=== PATIENT | female | born 1985 | race Caucasian/White ===

== ENCOUNTER 2019-10-14 03:49 | Emergency (ER) | payer BC ==
[~2019-10-14] VITALS: Ht 170.2 cm; Wt 77.1 kg
[2019-10-14] MEDS ORDERED: ZOLOFT25 MG ORAL (04:03)
--- NOTE | 2019-10-14 04:06 | NUR ---
ED Nurse Note: pt ambulated to ED from home c/o N/V and chills x12hrs, pt unable to keep down water, VSS except BP 160's, pt currently vomitting, ERMD at bedside
[2019-10-14] MEDS ORDERED: DiphenhydrAMINE 50mg/ml Inj IVP ONE (04:15)
[2019-10-14] MEDS ORDERED: LORazepam Inj 2mg/ml 1ml IV ONE (04:15)
[2019-10-14] MEDS ORDERED: Metoclopramide 10mg/2ml Inj IVP ONE (04:15)
--- NOTE | 2019-10-14 04:15 | Emergency Room Report ---
History of Present Illness General Chief Complaint: Vomiting Source: Patient, Friend Present Illness HPI Patient presents with vomiting and vertigo. This been going on for about 12 hours. She cannot open her eyes because the world is spinning. She recently started Zoloft. She denies any fevers or chills. She denies headache. There is no muscle weakness. She denies any abdominal pain. Her last menstruation started the beginning of the month and was normal for her. She does not believe she is at this time. THC 1 week ago. Wine 2 nights ago. No coffee grounds or hematemesis. No diarrhea or melena. No dysuria. She denies prior migraines. She denies tinnitus or change in hearing. Allergies: Coded Allergies: SULFAMETHOXAZOLE (Verified Allergy, Unknown, 10/14/19) TRIMETHOPRIM (Verified Allergy, Unknown, 10/14/19) Patient History Past Medical History: see triage record Social History: Reports: alcohol use, drug use - THC ; Denies: smoking Social History Narrative Unemployed Last Menstrual Period: 10/08/19 Now: No : 1 Para: 1 Reviewed Nursing Documentation: PMH: Agreed; PSxH: Agreed Nursing Documentation-PMH History Of Psychiatric Problem: Yes - depression Review of Systems All Other Systems: negative except mentioned in HPI Physical Exam Vital Signs Date Time Temp Pulse Resp B/P (MAP) Pulse Ox O2 Delivery O2 Flow Rate FiO2 10/14/19 03:52 65 18 161/99 (119) 98 Room Air Sp02 EP Interpretation: reviewed, normal General Appearance: no apparent distress, GCS 15, non-toxic, mild distress, other - vomiting Head: normocephalic Eyes: bilateral eye normal inspection, bilateral eye abnormal EOM - nystagmus, fast phase to left ENT: moist mucus membranes Neck: supple Respiratory: lungs clear, normal breath sounds Cardiovascular #1: regular rate, rhythm Cardiovascular #2: 2+ radial (R) Gastrointestinal: normal inspection, non tender, no mass, non-distended, decreased bowel sounds Musculoskeletal: back normal, normal range of motion, gait/station normal Neurologic: alert, motor strength/tone normal, oriented x3, sensory intact, speech normal Psychiatric: anxious Skin: other - sallo Medical Decision Making Diagnostic Impression: Primary Impression: Labyrinthitis Qualified Codes: H83.09 - Labyrinthitis, unspecified ear Additional Impressions: Vertigo Vomiting Qualified Codes: R11.2 - Nausea with vomiting, unspecified ER Course Patient presents with a world spinning and vomiting. Differential includes vertigo, labyrinthitis, adverse reaction to Zoloft, electrolyte imbalance amongst others. Due to the severity of symptoms doubt central cause. Evaluation with labs. Patient is placed on a bus monitor. Patient will receive IV hydration, Reglan, Benadryl and Ativan. Labs with minimal leukocytosis. Glucose 200. Few episodes of bradycardia but not symptomatic. Solu-Medrol given. Patient improved with treatment. Tolerating oral intake. Discussed findings with patient. Discussed the possibility for observation in the hospital if not doing well. No medical emergency at this time. Patient stable for outpatient observation and treatment. Laboratory Tests Test 10/14/19 04:15 White Blood Count 13.6 K/UL (4.8-10.8) H Red Blood Count 4.74 M/UL (4.20-5.40) Hemoglobin 13.9 G/DL (12.0-16.0) Hematocrit 40.6 % (37.0-47.0) Mean Corpuscular Volume 86 FL (80-99) Mean Corpuscular Hemoglobin 29.4 PG (27.0-31.0) Mean Corpuscular Hemoglobin Concent 34.3 G/DL (32.0-36.0) Red Cell Distribution Width 12.4 % (11.6-14.8) Platelet Count 229 K/UL (150-450) Mean Platelet Volume 7.3 FL (6.5-10.1) Neutrophils (%) (Auto) 73.0 % (45.0-75.0) Lymphocytes (%) (Auto) 20.6 % (20.0-45.0) Monocytes (%) (Auto) 5.1 % (1.0-10.0) Eosinophils (%) (Auto) 0.8 % (0.0-3.0) Basophils (%) (Auto) 0.6 % (0.0-2.0) Prothrombin Time 10.0 SEC (9.30-11.50) Prothrombin Time INR 0.9 (0.9-1.1) Activated Partial Thromboplast Time 24 SEC (23-33) Urine Color Pending Urine Appearance Pending Urine pH Pending Urine Specific [place] Pending Urine Protein Pending Urine Glucose (UA) Pending Urine Ketones Pending Urine Blood Pending Urine Nitrite Pending Urine Bilirubin Pending Urine Urobilinogen Pending Urine Leukocyte Esterase Pending Sodium Level 138 MMOL/L (136-145) Potassium Level 4.1 MMOL/L (3.5-5.1) Chloride Level 102 MMOL/L (98-107) Carbon Dioxide Level 23 MMOL/L (21-32) Anion Gap 13 mmol/L (5-15) Blood Urea Nitrogen 17 mg/dL (7-18) Creatinine 0.9 MG/DL (0.55-1.30) Estimate Glomerular Filtration Rate > 60 mL/min (>60) Glucose Level 200 MG/DL (74-106) H Calcium Level 9.8 MG/DL (8.5-10.1) Total Bilirubin 0.3 MG/DL (0.2-1.0) Aspartate Amino Transferase (AST) 22 U/L (15-37) Alanine Aminotransferase (ALT) 30 U/L (12-78) Alkaline Phosphatase 70 U/L (46-116) Total Protein 8.4 G/DL (6.4-8.2) H Albumin 3.9 G/DL (3.4-5.0) Globulin 4.5 g/dL Albumin/Globulin Ratio 0.9 (1.0-2.7) L Lipase 130 U/L (73-393) Human Chorionic Gonadotropin, Qual Negative (NEGATIVE) Rhythm Strip Diag. Results EP Interpretation: yes Rhythm: NSR, no PVC's, no ectopy Last Vital Signs Date Time Temp Pulse Resp B/P (MAP) Pulse Ox O2 Delivery O2 Flow Rate FiO2 10/14/19 08:55 98.8 60 20 102/57 99 Room Air Status: improved Disposition: HOME, SELF-CARE Condition: Improved Scripts Lorazepam* (ATIVAN*) 0.5 Mg Tablet 0.5 MG ORAL THREE TIMES A DAY PRN for vertigo, #6 TAB 1 Refill Prov: Dorian Lozano MD 10/14/19 Ondansetron Odt* (ZOFRAN ODT*) 4 Mg Tab.rapdis 4 MG BC EVERY 8 HOURS PRN for Nausea & Vomiting, #10 TAB 1 Refill Prov: Dorian Lozano MD 10/14/19 Meclizine Hcl* (MECLIZINE*) 25 Mg Tablet 25 MG ORAL THREE TIMES A DAY PRN for vertigo, #14 TAB 1 Refill Prov: Dorian Lozano MD 10/14/19 Dorian Lozano MD Oct 14, 2019 04:15
[2019-10-14 04:28] VITALS: BP 161/99
[2019-10-14 04:29] LABS: BASOPHILS % (AUTO) 0.6 % (0.0-2.0); EOSINOPHILS % (AUTO) 0.8 % (0.0-3.0); HEMATOCRIT 40.6 % (37.0-47.0); HEMOGLOBIN 13.9 G/DL (12.0-16.0); LYMPHOCYTES % (AUTO) 20.6 % (20.0-45.0); MEAN CORPUSCULAR VOLUME 86 FL (80-99); MONOCYTES % (AUTO) 5.1 % (1.0-10.0); PLATELET COUNT 229 K/UL (150-450); RED BLOOD COUNT 4.74 M/UL (4.20-5.40); RED CELL DISTRIBUTION WIDTH 12.4 % (11.6-14.8); WHITE BLOOD COUNT 13.6 K/UL (4.8-10.8)
[2019-10-14 04:43] LABS: ANION GAP 13 mmol/L (5-15); BLOOD UREA NITROGEN 17 mg/dL (7-18); CALCIUM 9.8 MG/DL (8.5-10.1); CARBON DIOXIDE 23 MMOL/L (21-32); CHLORIDE 102 MMOL/L (98-107); CREATININE 0.9 MG/DL (0.55-1.30); POTASSIUM 4.1 MMOL/L (3.5-5.1); SODIUM 138 MMOL/L (136-145)
[2019-10-14 04:45] LABS: INR 0.9 (0.9-1.1)
[2019-10-14 04:47] LABS: ALANINE AMINOTRANSFERASE 30 U/L (12-78); ALBUMIN 3.9 G/DL (3.4-5.0); ALBUMIN/GLOBULIN RATIO 0.9 (1.0-2.7); ALKALINE PHOSPHATASE 70 U/L (46-116); ASPARTATE AMINO TRANSFERASE 22 U/L (15-37); BILIRUBIN,TOTAL 0.3 MG/DL (0.2-1.0)
[2019-10-14] MEDS ORDERED: Solu-MEDROL 125mg Inj IVP ONE (05:00)
--- NOTE | 2019-10-14 06:26 | NUR ---
ED Nurse Note: pt resting in bed with eyes closed, non-labored breathing, pt states she is in less pain with less nausea, fluids infusing per order.
[2019-10-14 06:27] VITALS: BP 134/88
[2019-10-14] MEDS ORDERED: ATIVAN0.5 MG ORAL (06:52)
[2019-10-14] MEDS ORDERED: MECLIZINE HCL25 MG ORAL (06:52)
[2019-10-14] MEDS ORDERED: ONDANSETRON ODT4 MG BC (06:52)
--- NOTE | 2019-10-14 07:01 | NUR ---
HAND-OFF: Report given to MARIAA Saldana.
--- NOTE | 2019-10-14 07:20 | NUR ---
ED Nurse Note: Received pt on bed, sleeping. VSS, on RA. noted no signs of acute distress.
[2019-10-14 07:30] VITALS: BP 102/57
[2019-10-14 08:55] VITALS: BP 102/57
--- NOTE | 2019-10-14 08:55 | NUR ---
ER DISCHARGE NOTE: Pt is cleared to be discharged per ERMD, Pt is aox4, on room air, with stable vital signs. pt was given dc and prescription instructions, pt was able to verbalize understanding, pt id band and iv site removed without complications. pt is able to ambulate with steady gait. pt took all belongings. Pt left ED accompanied by .
== END 2019-10-14 08:55 | disposition home or self-care (01) ==
LOC: EMR 04:14
DX: H83.09 Labyrinthitis, unspecified ear (principal); R42 Dizziness and giddiness; R11.2 Nausea with vomiting, unspecified; F12.90 Cannabis use, unspecified, uncomplicated; Z72.89 Other problems related to lifestyle; Z88.2 Allergy status to sulfonamides; Z88.1 Allergy status to other antibiotic agents
CPT/HCPCS: 36415; 80053; 83690; 84703; 85025; 85610; 85730; 96361; 96374; 96375; 99284; J1200; J2765; J2930; J7030; S0028

== ENCOUNTER 2019-10-16 18:18 | Inpatient (IN) | payer BC ==
[~2019-10-16] VITALS: Ht 170.2 cm; Wt 80.5 kg
[~2019-10-16 18:18] MED LIST: ATIVAN0.5 MG ORAL; MECLIZINE HCL25 MG ORAL; ONDANSETRON ODT4 MG BC; ZOLOFT25 MG ORAL
[2019-10-16 18:45] VITALS: BP 122/85
[2019-10-16] MEDS ORDERED: LORazepam Inj 2mg/ml 1ml IV ONE (18:45)
--- NOTE | 2019-10-16 18:45 | NUR ---
ED Nurse Note: PATIENT WALKED IN TO ER C/O PERSISTENT VERTIGO AND SHE STILL FEELS SPINNING SENSATION. PT WAS SEEN THURSDAY BY DR CHOU, 10/14 AND WAS PRESCRIBED WITH MECLIZINE 25MG. PATIENT PRESENTED ANXIOUS, AAO X 4, VSS AT THIS TIME.
[2019-10-16] MEDS ORDERED: Gadavist 7.5mMol/7.5ml vial IV PRN (19:30)
[2019-10-16 19:32] LABS: BASOPHILS % (AUTO) 0.8 % (0.0-2.0); EOSINOPHILS % (AUTO) 1.7 % (0.0-3.0); HEMATOCRIT 43.7 % (37.0-47.0); HEMOGLOBIN 13.5 G/DL (12.0-16.0); LYMPHOCYTES % (AUTO) 30.5 % (20.0-45.0); MEAN CORPUSCULAR VOLUME 93 FL (80-99); MONOCYTES % (AUTO) 6.5 % (1.0-10.0); NEUTROPHILS % (AUTO) 60.5 % (45.0-75.0); PLATELET COUNT 205 K/UL (150-450); RED CELL DISTRIBUTION WIDTH 13.4 % (11.6-14.8); WHITE BLOOD COUNT 12.1 K/UL (4.8-10.8)
[2019-10-16 19:34] LABS: ANION GAP 7 mmol/L (5-15); BLOOD UREA NITROGEN 18 mg/dL (7-18); CALCIUM 9.3 MG/DL (8.5-10.1); CARBON DIOXIDE 30 MMOL/L (21-32); CHLORIDE 105 MMOL/L (98-107); CREATININE 0.8 MG/DL (0.55-1.30); POTASSIUM 4.4 MMOL/L (3.5-5.1); SODIUM 142 MMOL/L (136-145)
[2019-10-16 19:39] LABS: ALANINE AMINOTRANSFERASE 69 U/L (12-78); ALBUMIN 3.6 G/DL (3.4-5.0); ALBUMIN/GLOBULIN RATIO 0.9 (1.0-2.7); ALKALINE PHOSPHATASE 70 U/L (46-116); ASPARTATE AMINO TRANSFERASE 46 U/L (15-37); BILIRUBIN,TOTAL 0.2 MG/DL (0.2-1.0)
[2019-10-16 21:25] VITALS: BP 125/73
--- NOTE | 2019-10-16 21:25 | NUR ---
ED Nurse Note: Received report from Sonja LEROY. Pt moved from Tx2 to Bed5. Pt was taken for MRI, accompanied by a tech.
--- NOTE | 2019-10-16 21:47 | NUR ---
ED Nurse Note: Pt came back from MRI, not in any distress.
--- NOTE | 2019-10-16 22:00 | Emergency Room Report ---
History of Present Illness General Chief Complaint: Vertigo Source: Patient (Yasmin Lopez) Present Illness HPI 34 YO Female presents to the ED c/o intractable vertigo despite taking prescribed medications from her visit 2 days ago for similar symptoms. She denies LUIS, fevers, chills, tinnitus, visual changes/loss of vision. She denies neck pain/stiffness, cough or abdominal pain/tenderness. Pt. denies . Pt. was evaluated on 10/14/2019- rx'd Meclizine, Ativan, and Zofran PO, pt. endorses not having any relief of vertigo with medications. She reports as soon as she sits up she begins having symptoms again. PT. returns for re- evaluation. Pmhx of Depression. She recently was started on Zofran and noticed began having dizziness. The stopped taking it for two days and then only took 25mg and she had severe vertigo which prompted her to seek emergency evaluation the first time. Pt. has not taken any more since. Pt. reports after of first child she was on Zoloft for a temporary period of time and tolerated it well. She reports THC use but endorses that she has not used in the last week. She denies alcoholism and reports social drinking. She is currently going through a divorce and this has been emotionally taxing on her which is why she began seeing a psychiatrist again. Pt. denies recent head trauma or recent URI. (Yasmin Loepz) Allergies: Coded Allergies: SULFAMETHOXAZOLE (Verified Allergy, Unknown, 10/14/19) TRIMETHOPRIM (Verified Allergy, Unknown, 10/14/19) Patient History Past Medical History: see triage record, psych hx - depression Last Menstrual Period: 09/18/19 Now: No Reviewed Nursing Documentation: PMH: Agreed; PSxH: Agreed (Yasmin Lopez) Nursing Documentation-PMH Past Medical History: No Stated History (Yasmin Lopez) Review of Systems All Other Systems: negative except mentioned in HPI (Yasmin Lopez) Physical Exam Vital Signs Date Time Temp Pulse Resp B/P (MAP) Pulse Ox O2 Delivery O2 Flow Rate FiO2 10/16/19 18:28 98.4 64 16 122/85 (97) 99 Room Air (Yasmin Lopez) Medical Decision Making PA Attestation Dr. Aguero is my supervising Physician whom patient management has been discussed with. (Yasmin Lopez) PA Attestation I participated in the care of this patient along with IVET Allison Briefly, this is a 34-year-old female recently seen in the emergency department for vertigo. She has been using Ativan, meclizine and Zofran at home though remains symptomatic. Reporting lightheadedness and vertiginous spinning sensation. Denies changes in hearing or tinnitus. Repeat labs are within normal limits and an MRI was ordered which is returned unremarkable. She remains symptomatic and will be admitted for intractable vertigo. (Richard Aguero MD) ER Course 34 YO Female presents to the ED c/o intractable vertigo despite taking prescribed medications from her visit 2 days ago for similar symptoms. She denies LUIS, fevers, chills, tinnitus, visual changes/loss of vision. She denies neck pain/stiffness, cough or abdominal pain/tenderness. Pt. denies . Pt. was evaluated on 10/14/2019- rx'd Meclizine, Ativan, and Zofran PO, pt. endorses not having any relief of vertigo with medications. She reports as soon as she sits up she begins having symptoms again. PT. returns for re- evaluation. Pmhx of Depression. She recently was started on Zofran and noticed began having dizziness. The stopped taking it for two days and then only took 25mg and she had severe vertigo which prompted her to seek emergency evaluation the first time. Pt. has not taken any more since. Pt. reports after of first child she was on Zoloft for a temporary period of time and tolerated it well. She reports THC use but endorses that she has not used in the last week. She denies alcoholism and reports social drinking. She is currently going through a divorce and this has been emotionally taxing on her which is why she began seeing a psychiatrist again. Pt. denies recent head trauma or recent URI. Ddx considered but are not limited to Mnire's, BPPV, labyrinthitis, cerebellar stroke, hypovolemia, cardiac cause. Vital signs: are WNL, pt. is afebrile H&PE are most consistent with :Intractable vertigo warranting further evaluation and advanced imagin. ORDERS: -CBC: WNL -CMP: WNL -MRI Brain with contrast: WNL -EKG: Sinus sy 51bpm ED INTERVENTIONS: -1 Liter NS bolus -1 mg Ativan IV DISPOSITION: at this time pt. will be admitted to Dr. Galvin for intractable vertigo Dr. Galvin agreed to admit the pt. and to continue pt. care management. Labs Test 10/16/19 19:10 White Blood Count 12.1 K/UL (4.8-10.8) Red Blood Count 4.70 M/UL (4.20-5.40) Hemoglobin 13.5 G/DL (12.0-16.0) Hematocrit 43.7 % (37.0-47.0) Mean Corpuscular Volume 93 FL (80-99) Mean Corpuscular Hemoglobin 28.8 PG (27.0-31.0) Mean Corpuscular Hemoglobin Concent 30.9 G/DL (32.0-36.0) Red Cell Distribution Width 13.4 % (11.6-14.8) Platelet Count 205 K/UL (150-450) Mean Platelet Volume 8.9 FL (6.5-10.1) Neutrophils (%) (Auto) 60.5 % (45.0-75.0) Lymphocytes (%) (Auto) 30.5 % (20.0-45.0) Monocytes (%) (Auto) 6.5 % (1.0-10.0) Eosinophils (%) (Auto) 1.7 % (0.0-3.0) Basophils (%) (Auto) 0.8 % (0.0-2.0) Urine HCG, Qualitative Negative (NEGATIVE) Sodium Level 142 MMOL/L (136-145) Potassium Level 4.4 MMOL/L (3.5-5.1) Chloride Level 105 MMOL/L (98-107) Carbon Dioxide Level 30 MMOL/L (21-32) Anion Gap 7 mmol/L (5-15) Blood Urea Nitrogen 18 mg/dL (7-18) Creatinine 0.8 MG/DL (0.55-1.30) Estimat Glomerular Filtration Rate > 60 mL/min (>60) Glucose Level 93 MG/DL (74-106) Calcium Level 9.3 MG/DL (8.5-10.1) Total Bilirubin 0.2 MG/DL (0.2-1.0) Aspartate Amino Transf (AST/SGOT) 46 U/L (15-37) Alanine Aminotransferase (ALT/SGPT) 69 U/L (12-78) Alkaline Phosphatase 70 U/L (46-116) Total Protein 7.8 G/DL (6.4-8.2) Albumin 3.6 G/DL (3.4-5.0) Globulin 4.2 g/dL Albumin/Globulin Ratio 0.9 (1.0-2.7) (Yasmin Lopez) EKG Diagnostic Results EP Interpretation: Dr. Aguero Rate: bradycardiac - 51 bpm Rhythm: NSR ST Segments: no acute changes ASA given to the pt in ED: No PA Scribe Text This Interpretation was scribed by IVET Lopez. (Yasmin Lopez) CT/MRI/US Diagnostic Results CT/MRI/US Diagnostic Results : Imaging Test Ordered: MRI Brain w. Contrast Impression "IMPRESSION: Normal MRI of the brain" per official radiology report- Please see report for specific details. (Yasmin Lopez) Last Vital Signs Date Time Temp Pulse Resp B/P (MAP) Pulse Ox O2 Delivery O2 Flow Rate FiO2 10/16/19 18:45 64 16 Room Air 10/16/19 18:45 98.4 122/85 99 (Yasmin Lopez) Disposition: ADMITTED INPATIENT Condition: Serious Referrals: NOT CHOSEN IPA/,REFERRING (PCP) Yasmin Lopez Oct 16, 2019 22:00 Richard Aguero MD Oct 16, 2019 22:54
--- NOTE | 2019-10-16 22:27 | Diagnostic Imaging Report ---
Indication: Dizziness and vertigo Technique: The head was imaged in a 1.5 Merari magnet. Sequences obtained include sagittal and axial T1 FLAIR, axial T2 fast spin echo with fat saturation, axial T2 FLAIR, diffusion and ADC map. Gadolinium-enhanced axial and coronal T1 FLAIR obtained also. Comparison: None Findings: The size, contour, and configuration of the sulci, ventricles, and basal cisterns appear normal. Neely-white differentiation is normal. There is no restricted diffusion. There is no mass effect, midline shift, edema, or hemorrhage. There are no abnormal extra-axial or intra-axial fluid collections. The corpus callosum is unremarkable. The brainstem and cerebellum are unremarkable. The sella is unremarkable. Bone marrow signal within the visualized osseous structures appears age appropriate and unremarkable otherwise. No abnormal enhancement is identified. Impression: Negative MRI brain with and without contrast. Note: The study was not performed as a IAC protocol as the clinical concern was acute infarction. Given the history of vertigo and dizziness, MRI of the IACs may be indicated.
--- NOTE | 2019-10-16 22:37 | Pulmonology Progress Note ---
Assessment/Plan Assessment/Plan Pulmonary Consultation HPI Patient is a 34 year old woman admitted with intractable vertigo, denies headache, fevers, chills, tinnitus, visual changes/loss of vision, neck pain/ stiffness. No recent cough or abdominal pain/tenderness. Pt. denies . test negative. Pt. was evaluated in the ED on 10/14/2019, treated with Meclizine, Ativan, and Zofran. Symptoms worse if she sits up. Pmhx of Depression. She denies recent head trauma or recent URI. Social History: social drinking. 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: Horizontal Nystagmus, rest negative Impression: Intractible Vertigo - Menierres vs Inner Ear dysfunction vs TIA vs Labrynthitis Depression Plan: O2 PRN Meclizine, PRN Ativan, Zofran 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 IVF Will need ENT/Neurology Consults CT head no contrast- negative for ICH, EDEMA, or mass Labs noted Troponins, CK-MB, CK- all negative Subjective ROS Limited/Unobtainable: No Allergies: Coded Allergies: SULFAMETHOXAZOLE (Verified Allergy, Unknown, 10/14/19) TRIMETHOPRIM (Verified Allergy, Unknown, 10/14/19) Objective Last 24 Hour Vital Signs Date Time Temp Pulse Resp B/P (MAP) Pulse Ox O2 Delivery O2 Flow Rate FiO2 10/16/19 18:45 64 16 Room Air 10/16/19 18:45 98.4 16 122/85 99 Room Air 10/16/19 18:28 98.4 64 16 122/85 (97) 99 Room Air Laboratory Tests 10/16/19 19:10: White Blood Count 12.1H, Red Blood Count 4.70, Hemoglobin 13.5, Hematocrit 43.7 , Mean Corpuscular Volume 93, Mean Corpuscular Hemoglobin 28.8, Mean Corpuscular Hemoglobin Concent 30.9L, Red Cell Distribution Width 13.4, Platelet Count 205, Mean Platelet Volume 8.9, Neutrophils (%) (Auto) 60.5, Lymphocytes (%) (Auto) 30.5, Monocytes (%) (Auto) 6.5, Eosinophils (%) (Auto) 1.7, Basophils (%) (Auto) 0.8, Urine HCG, Qualitative Negative, Sodium Level 142 , Potassium Level 4.4, Chloride Level 105, Carbon Dioxide Level 30, Anion Gap 7 , Blood Urea Nitrogen 18, Creatinine 0.8, Estimat Glomerular Filtration Rate > 60, Glucose Level 93, Calcium Level 9.3, Total Bilirubin 0.2, Aspartate Amino Transf (AST/SGOT) 46H, Alanine Aminotransferase (ALT/SGPT) 69, Alkaline Phosphatase 70, Total Protein 7.8, Albumin 3.6, Globulin 4.2, Albumin/Globulin Ratio 0.9L Current Medications Medications (Trade) Dose Ordered Sig/Brandon Route PRN Reason Start Time Stop Time Status Last Admin Dose Admin Gadobutrol (Gadavist) 7.5 mmol NOW PRN IV Radiology Procedure 10/16/19 19:30 10/20/19 19:28 Dorian Rawls MD Oct 16, 2019 22:37
[2019-10-16] MEDS ORDERED: LORazepam 1mg tab ORAL PRN (22:45)
[2019-10-16] MEDS ORDERED: Meclizine 25mg tab ORAL PRN (22:45)
--- NOTE | 2019-10-16 23:38 | NUR ---
ED Nurse Note: Report given to Amy LEROY from [place].
[2019-10-16 23:45] VITALS: BP 109/69
--- NOTE | 2019-10-16 23:45 | NUR ---
TRANSFER TO FLOOR: Patient transferred to Medsurg unit. Report given to Amy LEROY. Pt alert and oriented, verbally responsive. Not in any distress. Ambulatory. IV line on right AC 20g patent and intact. No skin issues. Med recon done. All her meds was placed inside ED medroom. Belongings list done. VSS. Family aware of th transfer.
[2019-10-17] VITALS: BP 117/75
--- NOTE | 2019-10-17 | NUR ---
NURSE NOTES: Received patient from ED via gurney, patient able to transfer from gurney to bed with supervision. Patient c/o of dizziness and "swaying" with no nausea or urge to vomit. Oriented to room, call light and belongings within reach. IV access intact and patent. Will carry out admission orders.
[2019-10-17 06:12] LABS: BASOPHILS % (AUTO) 0.6 % (0.0-2.0); EOSINOPHILS % (AUTO) 1.9 % (0.0-3.0); HEMATOCRIT 35.4 % (37.0-47.0); HEMOGLOBIN 12.1 G/DL (12.0-16.0); LYMPHOCYTES % (AUTO) 28.5 % (20.0-45.0); MEAN CORPUSCULAR VOLUME 87 FL (80-99); MONOCYTES % (AUTO) 6.7 % (1.0-10.0); NEUTROPHILS % (AUTO) 62.3 % (45.0-75.0); PLATELET COUNT 182 K/UL (150-450); RED BLOOD COUNT 4.05 M/UL (4.20-5.40); RED CELL DISTRIBUTION WIDTH 12.5 % (11.6-14.8); WHITE BLOOD COUNT 12.4 K/UL (4.8-10.8)
[2019-10-17 06:19] LABS: ANION GAP 7 mmol/L (5-15); BLOOD UREA NITROGEN 14 mg/dL (7-18); CALCIUM 8.2 MG/DL (8.5-10.1); CARBON DIOXIDE 26 MMOL/L (21-32); CHLORIDE 110 MMOL/L (98-107); CREATININE 0.7 MG/DL (0.55-1.30); POTASSIUM 3.6 MMOL/L (3.5-5.1); SODIUM 143 MMOL/L (136-145)
--- NOTE | 2019-10-17 07:33 | NUR ---
HAND-OFF: Report given to MARIAA Pinto.
--- NOTE | 2019-10-17 07:45 | NUR ---
NURSE NOTES: Pt lying in bed w/bed in lowest position and call light within reach. Pt A&Ox4, VSS, and in no apparent distress. IV site intact/asymptomatic w/IVF infusing and skin intact. Pt still c/o dizziness but no N/V. Will continue to monitor.
[2019-10-17 08:00] VITALS: BP 115/68
--- NOTE | 2019-10-17 08:39 | Pulmonology Progress Note ---
Assessment/Plan Assessment/Plan Pulmonary Progress Note HPI Patient is a 34 year old woman admitted with intractable vertigo, denies headache, fevers, chills, tinnitus, visual changes/loss of vision, neck pain/ stiffness. No recent cough or abdominal pain/tenderness. Pt. denies . test negative. Pt. was evaluated in the ED on 10/14/2019, treated with Meclizine, Ativan, and Zofran. Symptoms worse if she sits up. Pmhx of Depression. She denies recent head trauma or recent URI. Persistent vertigo Social History: social drinking. 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 IVF Will need ENT/Neurology Consults MRI brain negative Labs Noted: elevated WCC Seen earlier Subjective ROS Limited/Unobtainable: No Allergies: Coded Allergies: SULFAMETHOXAZOLE (Verified Allergy, Unknown, 10/14/19) TRIMETHOPRIM (Verified Allergy, Unknown, 10/14/19) Objective Last 24 Hour Vital Signs Date Time Temp Pulse Resp B/P (MAP) Pulse Ox O2 Delivery O2 Flow Rate FiO2 10/17/19 00:30 Room Air 10/17/19 00:00 97.7 78 18 117/75 (89) 95 10/16/19 23:45 98.0 62 20 109/69 98 Room Air 10/16/19 23:45 98.0 62 20 109/69 98 Room Air 10/16/19 21:25 98.1 78 19 125/73 100 Room Air 10/16/19 18:45 64 16 Room Air 10/16/19 18:45 98.4 16 122/85 99 Room Air 10/16/19 18:28 98.4 64 16 122/85 (97) 99 Room Air Intake and Output 10/16/19 10/17/19 19:00 07:00 Intake Total 675 ml Balance 675 ml Intake Oral 150 ml IV Total 525 ml # Voids 1 1 Laboratory Tests 10/16/19 19:10: White Blood Count 12.1H, Red Blood Count 4.70, Hemoglobin 13.5, Hematocrit 43.7 , Mean Corpuscular Volume 93, Mean Corpuscular Hemoglobin 28.8, Mean Corpuscular Hemoglobin Concent 30.9L, Red Cell Distribution Width 13.4, Platelet Count 205, Mean Platelet Volume 8.9, Neutrophils (%) (Auto) 60.5, Lymphocytes (%) (Auto) 30.5, Monocytes (%) (Auto) 6.5, Eosinophils (%) (Auto) 1.7, Basophils (%) (Auto) 0.8, Urine HCG, Qualitative Negative, Sodium Level 142 , Potassium Level 4.4, Chloride Level 105, Carbon Dioxide Level 30, Anion Gap 7 , Blood Urea Nitrogen 18, Creatinine 0.8, Estimat Glomerular Filtration Rate > 60, Glucose Level 93, Calcium Level 9.3, Total Bilirubin 0.2, Aspartate Amino Transf (AST/SGOT) 46H, Alanine Aminotransferase (ALT/SGPT) 69, Alkaline Phosphatase 70, Total Protein 7.8, Albumin 3.6, Globulin 4.2, Albumin/Globulin Ratio 0.9L 10/17/19 04:45: White Blood Count 12.4H, Red Blood Count 4.05L, Hemoglobin 12.1, Hematocrit 35.4L, Mean Corpuscular Volume 87, Mean Corpuscular Hemoglobin 29.9, Mean Corpuscular Hemoglobin Concent 34.3, Red Cell Distribution Width 12.5, Platelet Count 182, Mean Platelet Volume 7.7, Neutrophils (%) (Auto) 62.3, Lymphocytes (% ) (Auto) 28.5, Monocytes (%) (Auto) 6.7, Eosinophils (%) (Auto) 1.9, Basophils ( %) (Auto) 0.6, Sodium Level 143, Potassium Level 3.6, Chloride Level 110H, Carbon Dioxide Level 26, Anion Gap 7, Blood Urea Nitrogen 14, Creatinine 0.7, Estimat Glomerular Filtration Rate > 60, Glucose Level 87, Calcium Level 8.2L Current Medications Medications (Trade) Dose Ordered Sig/Brandon Route PRN Reason Start Time Stop Time Status Last Admin Dose Admin Acetaminophen (Tylenol) 650 mg Q4H PRN ORAL Mild Pain (Pain Scale 1-3) 10/16/19 22:45 11/15/19 22:44 Dextrose (Dextrose 50%) 25 ml Q30M PRN IV Hypoglycemia 10/16/19 22:45 11/15/19 22:44 Dextrose (Dextrose 50%) 50 ml Q30M PRN IV Hypoglycemia 10/16/19 22:45 11/15/19 22:44 Gadobutrol (Gadavist) 7.5 mmol NOW PRN IV Radiology Procedure 10/16/19 19:30 10/20/19 19:28 Heparin Sodium (Porcine) (Heparin 5000 units/ml) 5,000 units EVERY 12 HOURS SUBQ 10/17/19 09:00 11/16/19 08:59 10/17/19 08:17 Lorazepam (Ativan) 1 mg Q4H PRN ORAL Nausea & Vomiting 10/16/19 22:45 10/23/19 22:44 10/17/19 00:01 Meclizine HCl (Antivert) 25 mg Q6H PRN ORAL for dizziness 10/16/19 22:45 11/15/19 22:44 Ondansetron HCl (Zofran) 4 mg Q6H PRN IVP Nausea & Vomiting 10/16/19 22:45 11/15/19 22:44 Prochlorperazine (Compazine) 10 mg Q6H PRN IVP Nausea & Vomiting 10/16/19 22:45 11/15/19 22:44 Sodium Chloride 1,000 ml @ 75 mls/hr [id number] IVLG 10/16/19 23:38 10/17/19 12:00 10/16/19 23:58 Dorian Rawls MD Oct 17, 2019 08:39
[2019-10-17] MEDS ORDERED: Heparin 5000 units/ml inj SUBQ SCH (09:00)
--- NOTE | 2019-10-17 09:13 | History & Physical ---
History and Physical History & Physicial HP Dictated on 909 hrs. Vega Galvin MD Oct 17, 2019 09:13
--- NOTE | 2019-10-17 09:14 | General Progress Note ---
Assessment/Plan Assessment/Plan: Seen and examined. note in progress 1- Acute BPV 2- Psych Plan: Pending labs Cardio, Psych consulted Subjective Allergies: Coded Allergies: SULFAMETHOXAZOLE (Verified Allergy, Unknown, 10/14/19) TRIMETHOPRIM (Verified Allergy, Unknown, 10/14/19) Objective Last 24 Hour Vital Signs Date Time Temp Pulse Resp B/P (MAP) Pulse Ox O2 Delivery O2 Flow Rate FiO2 10/17/19 00:30 Room Air 10/17/19 00:00 97.7 78 18 117/75 (89) 95 10/16/19 23:45 98.0 62 20 109/69 98 Room Air 10/16/19 23:45 98.0 62 20 109/69 98 Room Air 10/16/19 21:25 98.1 78 19 125/73 100 Room Air 10/16/19 18:45 64 16 Room Air 10/16/19 18:45 98.4 16 122/85 99 Room Air 10/16/19 18:28 98.4 64 16 122/85 (97) 99 Room Air Intake and Output 10/16/19 10/17/19 19:00 07:00 Intake Total 675 ml Balance 675 ml Intake Oral 150 ml IV Total 525 ml # Voids 1 1 Laboratory Tests 10/16/19 19:10: White Blood Count 12.1H, Red Blood Count 4.70, Hemoglobin 13.5, Hematocrit 43.7 , Mean Corpuscular Volume 93, Mean Corpuscular Hemoglobin 28.8, Mean Corpuscular Hemoglobin Concent 30.9L, Red Cell Distribution Width 13.4, Platelet Count 205, Mean Platelet Volume 8.9, Neutrophils (%) (Auto) 60.5, Lymphocytes (%) (Auto) 30.5, Monocytes (%) (Auto) 6.5, Eosinophils (%) (Auto) 1.7, Basophils (%) (Auto) 0.8, Urine HCG, Qualitative Negative, Sodium Level 142 , Potassium Level 4.4, Chloride Level 105, Carbon Dioxide Level 30, Anion Gap 7 , Blood Urea Nitrogen 18, Creatinine 0.8, Estimat Glomerular Filtration Rate > 60, Glucose Level 93, Calcium Level 9.3, Total Bilirubin 0.2, Aspartate Amino Transf (AST/SGOT) 46H, Alanine Aminotransferase (ALT/SGPT) 69, Alkaline Phosphatase 70, Total Protein 7.8, Albumin 3.6, Globulin 4.2, Albumin/Globulin Ratio 0.9L 10/17/19 04:45: White Blood Count 12.4H, Red Blood Count 4.05L, Hemoglobin 12.1, Hematocrit 35.4L, Mean Corpuscular Volume 87, Mean Corpuscular Hemoglobin 29.9, Mean Corpuscular Hemoglobin Concent 34.3, Red Cell Distribution Width 12.5, Platelet Count 182, Mean Platelet Volume 7.7, Neutrophils (%) (Auto) 62.3, Lymphocytes (% ) (Auto) 28.5, Monocytes (%) (Auto) 6.7, Eosinophils (%) (Auto) 1.9, Basophils ( %) (Auto) 0.6, Sodium Level 143, Potassium Level 3.6, Chloride Level 110H, Carbon Dioxide Level 26, Anion Gap 7, Blood Urea Nitrogen 14, Creatinine 0.7, Estimat Glomerular Filtration Rate > 60, Glucose Level 87, Calcium Level 8.2L Height (Feet): 5 Height (Inches): 7.00 Weight (Pounds): 170 Vega Galvin MD Oct 17, 2019 09:14
--- NOTE | 2019-10-17 11:09 | NUR ---
*-* NO INSURANCE INFORMATION IN THE BAR UNABLE TO SEND CLINICALS *--*
--- NOTE | 2019-10-17 11:21 | Cardiac Electrophysiology PN ---
Subjective Subjective [id number] Objective Last 24 Hour Vital Signs Date Time Temp Pulse Resp B/P (MAP) Pulse Ox O2 Delivery O2 Flow Rate FiO2 10/17/19 09:00 Room Air 10/17/19 08:00 98.0 65 18 115/68 (84) 99 10/17/19 00:30 Room Air 10/17/19 00:00 97.7 78 18 117/75 (89) 95 10/16/19 23:45 98.0 62 20 109/69 98 Room Air 10/16/19 23:45 98.0 62 20 109/69 98 Room Air 10/16/19 21:25 98.1 78 19 125/73 100 Room Air 10/16/19 18:45 64 16 Room Air 10/16/19 18:45 98.4 16 122/85 99 Room Air 10/16/19 18:28 98.4 64 16 122/85 (97) 99 Room Air Intake and Output 10/16/19 10/17/19 18:59 06:59 Intake Total 600 ml Balance 600 ml Intake Oral 150 ml IV Total 450 ml # Voids 1 1 Laboratory Tests Test 10/16/19 19:10 10/17/19 04:45 White Blood Count 12.1 K/UL (4.8-10.8) H 12.4 K/UL (4.8-10.8) H Red Blood Count 4.70 M/UL (4.20-5.40) 4.05 M/UL (4.20-5.40) L Hemoglobin 13.5 G/DL (12.0-16.0) 12.1 G/DL (12.0-16.0) Hematocrit 43.7 % (37.0-47.0) 35.4 % (37.0-47.0) L Mean Corpuscular Volume 93 FL (80-99) 87 FL (80-99) Mean Corpuscular Hemoglobin 28.8 PG (27.0-31.0) 29.9 PG (27.0-31.0) Mean Corpuscular Hemoglobin Concent 30.9 G/DL (32.0-36.0) L 34.3 G/DL (32.0-36.0) Red Cell Distribution Width 13.4 % (11.6-14.8) 12.5 % (11.6-14.8) Platelet Count 205 K/UL (150-450) 182 K/UL (150-450) Mean Platelet Volume 8.9 FL (6.5-10.1) 7.7 FL (6.5-10.1) Neutrophils (%) (Auto) 60.5 % (45.0-75.0) 62.3 % (45.0-75.0) Lymphocytes (%) (Auto) 30.5 % (20.0-45.0) 28.5 % (20.0-45.0) Monocytes (%) (Auto) 6.5 % (1.0-10.0) 6.7 % (1.0-10.0) Eosinophils (%) (Auto) 1.7 % (0.0-3.0) 1.9 % (0.0-3.0) Basophils (%) (Auto) 0.8 % (0.0-2.0) 0.6 % (0.0-2.0) Urine HCG, Qualitative Negative (NEGATIVE) Sodium Level 142 MMOL/L (136-145) 143 MMOL/L (136-145) Potassium Level 4.4 MMOL/L (3.5-5.1) 3.6 MMOL/L (3.5-5.1) Chloride Level 105 MMOL/L (98-107) 110 MMOL/L (98-107) H Carbon Dioxide Level 30 MMOL/L (21-32) 26 MMOL/L (21-32) Anion Gap 7 mmol/L (5-15) 7 mmol/L (5-15) Blood Urea Nitrogen 18 mg/dL (7-18) 14 mg/dL (7-18) Creatinine 0.8 MG/DL (0.55-1.30) 0.7 MG/DL (0.55-1.30) Estimat Glomerular Filtration Rate > 60 mL/min (>60) > 60 mL/min (>60) Glucose Level 93 MG/DL (74-106) 87 MG/DL (74-106) Calcium Level 9.3 MG/DL (8.5-10.1) 8.2 MG/DL (8.5-10.1) L Total Bilirubin 0.2 MG/DL (0.2-1.0) Aspartate Amino Transf (AST/SGOT) 46 U/L (15-37) H Alanine Aminotransferase (ALT/SGPT) 69 U/L (12-78) Alkaline Phosphatase 70 U/L (46-116) Total Protein 7.8 G/DL (6.4-8.2) Albumin 3.6 G/DL (3.4-5.0) Globulin 4.2 g/dL Albumin/Globulin Ratio 0.9 (1.0-2.7) L Roque Stephens MD Oct 17, 2019 11:21
[2019-10-17 12:00] VITALS: BP 127/77
--- NOTE | 2019-10-17 13:44 | Infectious Diseases Prog Note ---
Assessment/Plan Problems: (1) Leukocytosis Assessment & Plan: rule out infectious etiology, will send blood culture x 2, and order CXR, with UA monitor clinically (2) Vertigo Assessment & Plan: with nystagmus , rule out cerebellar pathology , has FH of AVM in her sister , recommend neurology eval Subjective Allergies: Coded Allergies: SULFAMETHOXAZOLE (Verified Allergy, Unknown, 10/14/19) TRIMETHOPRIM (Verified Allergy, Unknown, 10/14/19) Objective Vital Signs Last 24 Hour Vital Signs Date Time Temp Pulse Resp B/P (MAP) Pulse Ox O2 Delivery O2 Flow Rate FiO2 10/17/19 12:00 98.4 55 18 127/77 (94) 98 10/17/19 09:00 Room Air 10/17/19 08:00 98.0 65 18 115/68 (84) 99 10/17/19 00:30 Room Air 10/17/19 00:00 97.7 78 18 117/75 (89) 95 10/16/19 23:45 98.0 62 20 109/69 98 Room Air 10/16/19 23:45 98.0 62 20 109/69 98 Room Air 10/16/19 21:25 98.1 78 19 125/73 100 Room Air 10/16/19 18:45 64 16 Room Air 10/16/19 18:45 98.4 16 122/85 99 Room Air 10/16/19 18:28 98.4 64 16 122/85 (97) 99 Room Air Height (Feet): 5 Height (Inches): 7.00 Weight (Pounds): 170 Laboratory Tests Test 10/16/19 19:10 10/17/19 04:45 White Blood Count 12.1 K/UL (4.8-10.8) H 12.4 K/UL (4.8-10.8) H Red Blood Count 4.70 M/UL (4.20-5.40) 4.05 M/UL (4.20-5.40) L Hemoglobin 13.5 G/DL (12.0-16.0) 12.1 G/DL (12.0-16.0) Hematocrit 43.7 % (37.0-47.0) 35.4 % (37.0-47.0) L Mean Corpuscular Volume 93 FL (80-99) 87 FL (80-99) Mean Corpuscular Hemoglobin 28.8 PG (27.0-31.0) 29.9 PG (27.0-31.0) Mean Corpuscular Hemoglobin Concent 30.9 G/DL (32.0-36.0) L 34.3 G/DL (32.0-36.0) Red Cell Distribution Width 13.4 % (11.6-14.8) 12.5 % (11.6-14.8) Platelet Count 205 K/UL (150-450) 182 K/UL (150-450) Mean Platelet Volume 8.9 FL (6.5-10.1) 7.7 FL (6.5-10.1) Neutrophils (%) (Auto) 60.5 % (45.0-75.0) 62.3 % (45.0-75.0) Lymphocytes (%) (Auto) 30.5 % (20.0-45.0) 28.5 % (20.0-45.0) Monocytes (%) (Auto) 6.5 % (1.0-10.0) 6.7 % (1.0-10.0) Eosinophils (%) (Auto) 1.7 % (0.0-3.0) 1.9 % (0.0-3.0) Basophils (%) (Auto) 0.8 % (0.0-2.0) 0.6 % (0.0-2.0) Urine HCG, Qualitative Negative (NEGATIVE) Sodium Level 142 MMOL/L (136-145) 143 MMOL/L (136-145) Potassium Level 4.4 MMOL/L (3.5-5.1) 3.6 MMOL/L (3.5-5.1) Chloride Level 105 MMOL/L (98-107) 110 MMOL/L (98-107) H Carbon Dioxide Level 30 MMOL/L (21-32) 26 MMOL/L (21-32) Anion Gap 7 mmol/L (5-15) 7 mmol/L (5-15) Blood Urea Nitrogen 18 mg/dL (7-18) 14 mg/dL (7-18) Creatinine 0.8 MG/DL (0.55-1.30) 0.7 MG/DL (0.55-1.30) Estimat Glomerular Filtration Rate > 60 mL/min (>60) > 60 mL/min (>60) Glucose Level 93 MG/DL (74-106) 87 MG/DL (74-106) Calcium Level 9.3 MG/DL (8.5-10.1) 8.2 MG/DL (8.5-10.1) L Total Bilirubin 0.2 MG/DL (0.2-1.0) Aspartate Amino Transf (AST/SGOT) 46 U/L (15-37) H Alanine Aminotransferase (ALT/SGPT) 69 U/L (12-78) Alkaline Phosphatase 70 U/L (46-116) Total Protein 7.8 G/DL (6.4-8.2) Albumin 3.6 G/DL (3.4-5.0) Globulin 4.2 g/dL Albumin/Globulin Ratio 0.9 (1.0-2.7) L Current Medications Medications (Trade) Dose Ordered Sig/Brandon Route PRN Reason Start Time Stop Time Status Last Admin Dose Admin Acetaminophen (Tylenol) 650 mg Q4H PRN ORAL Mild Pain (Pain Scale 1-3) 10/16/19 22:45 11/15/19 22:44 Dextrose (Dextrose 50%) 25 ml Q30M PRN IV Hypoglycemia 10/16/19 22:45 11/15/19 22:44 Dextrose (Dextrose 50%) 50 ml Q30M PRN IV Hypoglycemia 10/16/19 22:45 11/15/19 22:44 Gadobutrol (Gadavist) 7.5 mmol NOW PRN IV Radiology Procedure 10/16/19 19:30 10/20/19 19:28 Heparin Sodium (Porcine) (Heparin 5000 units/ml) 5,000 units EVERY 12 HOURS SUBQ 10/17/19 09:00 11/16/19 08:59 10/17/19 08:17 Lorazepam (Ativan) 1 mg Q4H PRN ORAL Nausea & Vomiting 10/16/19 22:45 10/23/19 22:44 10/17/19 00:01 Meclizine HCl (Antivert) 25 mg Q6H PRN ORAL for dizziness 10/16/19 22:45 11/15/19 22:44 Ondansetron HCl (Zofran) 4 mg Q6H PRN IVP Nausea & Vomiting 10/16/19 22:45 11/15/19 22:44 Prochlorperazine (Compazine) 10 mg Q6H PRN IVP Nausea & Vomiting 10/16/19 22:45 11/15/19 22:44 Reyes Pan M.D. Oct 17, 2019 13:44
--- NOTE | 2019-10-17 14:30 | NUR ---
HAND-OFF: Transferred pt to 219-2 w/belongings accounted for and pt in stable condition. Gave report to MARIAA Kellogg, and endorsed to please f/u w/Dr. Galvin regarding neuro consult.
--- NOTE | 2019-10-17 14:36 | NUR ---
NURSE NOTES: Received report from MARIAA Valverde on 3E. Pt in bed, awake, talkative, no c/o pain, still complaining of dizziness, but no n/v, pt asking about neuro consult, none ordered at this time, discuss plan of care and need for urine specimen, bed in lowest position, call light within reach. RN notified Dr. Galvin that no neuro is on case and Dr. Corrigan needs to be contacted by him.
--- NOTE | 2019-10-17 14:43 | NUR ---
RADIOLOGY DEPT., CHEST X-RAY DONE.-P.DYE
[2019-10-17] MEDS: LORazepam 1mg tab ORAL PRN ×2 (14:57→20:10)
--- NOTE | 2019-10-17 15:00 | NUR ---
NURSE NOTES: Dr. Galvin stated he contacted Dr. Sevilla for neuro consult. RN contacted Dr. Sevilla's office to inform of pt family hx. one sister had AVM and passed at age 36, one sister had a brain tumor and passed at age 41. Per MD's office Dr. Sevilla will make rounds this evening
--- NOTE | 2019-10-17 15:27 | Diagnostic Imaging Report ---
Indication: Dyspnea Comparison: None A single view chest radiograph was obtained. Findings: Cardiomediastinal appearance is within normal limits for age. The lungs are clear. Pulmonary vascularity is appropriate. The diaphragmatic contour is smooth and costophrenic angles are sharp. No pleural effusions are identified. The bones are unremarkable. Impression: No acute findings
[2019-10-17 15:49] LABS: BILIRUBIN, URINE NEGATIVE (NEGATIVE); COLOR,URINE PALE YELLOW; GLUCOSE, URINE (UA) NEGATIVE (NEGATIVE); KETONES,URINE NEGATIVE (NEGATIVE); LEUKOCYTE ESTERASE ,URINE 2+ (NEGATIVE); NITRITE,URINE NEGATIVE (NEGATIVE); PH,URINE 6.5 (4.5-8.0); PROTEIN,URINE NEGATIVE (NEGATIVE); UROBILINOGEN,URINE NORMAL MG/DL (0.0-1.0)
[2019-10-17 15:52] LABS: APPEARANCE,URINE SLIGHTLY CLOUDY
[2019-10-17 16:00] VITALS: BP 116/76
--- NOTE | 2019-10-17 16:15 | Consultation ---
DATE OF CONSULTATION: 10/17/2019 CARDIOLOGY CONSULTATION CONSULTING PHYSICIAN: Roque Stephens M.D. REFERRING PHYSICIAN: Vega Galvin M.D. REASON FOR CONSULTATION: Vertigo and dizziness. HISTORY OF PRESENT ILLNESS: The patient is a very pleasant 34-year-old lady who presented to the emergency room for intractable vertigo. The patient denies any syncope or presyncope. The patient's test was negative. She states that she is very anxious, she is going through divorce. The patient was treated in the emergency room on 10/14/2019 and was treated with meclizine, Ativan, and Zofran and symptoms are getting worse . The patient's EKG showed sinus bradycardia, heart rate of 51, otherwise normal EKG. Cardiology consultation was requested for further evaluation. REVIEW OF SYSTEMS: Negative other than what was mentioned in the history of present illness. PAST MEDICAL HISTORY: Includes depression. FAMILY HISTORY: Noncontributory. SOCIAL HISTORY: She lives at home. Does not smoke or drink alcohol. PHYSICAL EXAMINATION: VITAL SIGNS: Show blood pressure of 150/68, pulse is 65, respirations 18, and she is afebrile. HEAD AND NECK: Showed no JVD. LUNGS: Clear. CARDIOVASCULAR: Regular S1 and S2 with no gallop or murmur. ABDOMEN: Soft. EXTREMITIES: No pitting edema. LABORATORY AND DIAGNOSTIC DATA: Her labs show white count 12.4, hemoglobin 12.1, hematocrit 35.4, and platelet count of 182,000. Sodium 142, potassium 3.3, BUN of 14, creatinine of 0.7, glucose of 87. Urine HCG was negative. ASSESSMENT AND PLAN: 1. Vertigo, etiology is not clear at this time. She is already on meclizine. Her EKG, however, shows sinus bradycardia of only 51. Transfer the patient to telemetry and watch the patient on telemetry to make sure these are not bradycardia related. Echocardiogram and carotid duplex will also be ordered. 2. History of depression. Thank you very much for allowing me to participate in the care of this patient. Please do not hesitate to contact me for any questions regarding my evaluation. Roque Stephens M.D. DR: NATALEE JOB#: [id number] CC:
[2019-10-17] MEDS ORDERED: Meclizine 25mg tab ORAL PRN (16:45)
--- NOTE | 2019-10-17 16:49 | Diagnostic Imaging Report ---
Indication: Syncope TECHNIQUE: Duplex extracranial carotid and vertebral artery sonography performed with color flow imaging and waveform analysis. COMPARISON: None FINDINGS: Right carotid: Grayscale and color-flow imaging demonstrating no hemodynamically significant stenosis within the common carotid artery, extracranial internal carotid artery. Peak systolic and end-diastolic velocities are within normal limits. ICA/CCA ratios are within normal limits. Mild heterogeneous plaques are demonstrated consistent with atherosclerotic disease. Left carotid: Grayscale and color-flow imaging demonstrating no hemodynamically significant stenosis within the common carotid artery, extracranial internal carotid artery. Peak systolic and end-diastolic velocities are within normal limits. ICA/CCA ratios are within normal limits. Mild heterogeneous plaques are demonstrated consistent with atherosclerotic disease. Vertebral arteries: Antegrade flow demonstrated within both vertebral arteries. IMPRESSION: No hemodynamically significant extracranial carotid artery stenosis identified. Antegrade flow within both vertebral arteries. This report utilizes carotid stenosis grading criteria based on the meeting of Society of radiologists in ultrasound consensus conference, June 2002.
--- NOTE | 2019-10-17 17:13 | NUR ---
CASE MANAGEMENT: INITIAL REVIEW 34YR OLD FEMALE FROM HOME CC: VERTIGO SI: VERTIGO 98.4 64 16 122/85 99% ON RA WBC 12.1 AST 46 IS:IVF NS BOLUS X2 IV ATIVAN X2 BRAIN MRI - NEGATIVE \: 3E MED SURG UNIT CASE MANAGEMENT: REVIEW 10/17/19 SI: VERTIGO . DIZZINESS 98.4 55 18 127/77 98% ON RA WBC 12.4 CL- 110 CA+ 8.2 IS:ATIVAN PO Q4HR/PRN \: TRANSFER TO [facility] UNIT D/T BRADYCARDIA PLAN: URINE CX -PENDING BLOOD CX - PENDING VENOUS DUPLEX CHEST X-RAY - NO ACUTE FINDINGS Addendum: 10/18/19 at 1228 by NAYELI APONTE LVN PLAN: NEURO CHECKS Q4HRS
--- NOTE | 2019-10-17 18:15 | History and Physical Report ---
DATE OF ADMISSION: 10/16/2019 SOURCE OF INFORMATION: The patient and EMR. HISTORY OF PRESENT ILLNESS: The patient is a pleasant 34-year-old female who presents with worsening of dizziness associated with nausea. Nausea is triggered by the 00:50 vertigo. Getting worse by the motion. It came to the level that the patient was not able to walk and stand still. The patient presented. The symptoms are getting worse for the last couple of days. Denies history of this severe episodes in the past. PAST MEDICAL HISTORY: Benign positional vertigo, anxiety, and depression. PAST SURGICAL HISTORY: Denies. OUTPATIENT MEDICATIONS: Including lorazepam and meclizine. SOCIAL HISTORY: The patient has one child. Denies history of illicit drug abuse, smoking, or alcohol abuse. PHYSICAL EXAMINATION: VITAL SIGNS: Blood pressure 110/80, temperature 98.2, pulse oximetry 98% on room air, and pulse rate 65. HEAD AND NECK: Atraumatic and normocephalic. CHEST: Clear to auscultation. HEART: S1, S2. Regular rate and rhythm. ABDOMEN: Soft. No organomegaly. MUSCULOSKELETAL: No gross focal motor deficit. NEUROLOGIC: The patient is awake and alert. Positive for vertigo. No nystagmus. No abnormal gross cranial nerve deficit is appreciated. LABORATORY AND DIAGNOSTIC DATA: Laboratories dated October 16, WBC 12.1, hemoglobin of 13.5. Sodium 132, BUN 18, and creatinine 0.8. Urine analysis is negative for any . Brain MRI is normal, dated October 16. ASSESSMENT AND PLAN: 1. Acute on chronic life-interrupting severe benign positional vertigo. 2. Psychiatric disorder. 3. GI and DVT prophylaxis. PLAN OF CARE: Given the patient's symptomatology severity and interrupting for the patient's basic normal life setting, it justifies inpatient care. I will keep the patient NPO. I agree with IV fluid. COMMENT: The time of this dictation does not reflect the actual time of encounter, which occurred on October 16. Vega Galvin M.D. DR: CHARLIE JOB#: [id number] CC:
--- NOTE | 2019-10-17 19:18 | NUR ---
HAND-OFF: Report given to MARIAA Victoria.
[2019-10-17] MEDS ORDERED: Gadavist 7.5mMol/7.5ml vial IV PRN (19:30)
--- NOTE | 2019-10-17 19:45 | Consultation ---
DATE OF CONSULTATION: 10/17/2019 INFECTIOUS DISEASE CONSULTATION CONSULTING PHYSICIAN: Reyes Pan M.D. REQUESTING PHYSICIAN: Vega Galvin M.D. REASON FOR CONSULTATION: Vertigo with leukocytosis, rule out infectious etiology. HISTORY OF PRESENT ILLNESS: The patient is a 34-year-old female with negative actually past medical history, who presented to the emergency room again with vertigo, which has been persistent. The patient visited the emergency room here a couple of days ago for similar symptoms and she was prescribed meclizine with Ativan and Zofran, but her symptoms did not get better. She reported vertigo at rest with room waving around her. She also reported blurry vision, which has been old, way back before her vertigo started. Denied any trauma to the head. No headache. No sore throat, runny nose, or earache. No ear draining. No hearing loss. No neck stiffness or lymphadenopathy. No chest pain or palpitation. No cough or shortness of breath. The patient's vital signs were stable in the emergency room. She had elevated white count around 12,000, which was concerning for infectious etiology, so Infectious Disease consultation was requested for further evaluation and management. REVIEW OF SYSTEMS: A 14-point of system reviewed were all negative apart from the one I mentioned above in my H and P. PAST MEDICAL HISTORY: Significant for depression. PAST SURGICAL HISTORY: Negative. FAMILY HISTORY: Significant for AVM malformation in her sister. SOCIAL HISTORY: The patient is , actually getting through divorce now. Unemployed. Denies using any drugs, tobacco, or alcohol. ALLERGIES: She is allergic to sulfa and trimethoprim. MEDICATIONS: She is on Tylenol, Zofran, Compazine, Ativan, meclizine. LABORATORY AND DIAGNOSTIC DATA: Laboratories showed white count of 12.4, hemoglobin of 12.1, platelet count of 182,000. BUN of 14 and creatinine of 0.7. Urine hCG was negative. Imaging, brain MRI was negative for any acute pathology. PHYSICAL EXAMINATION: VITAL SIGNS: Temperature 98.4, pulse 55, respiration 18, blood pressure 127/77, and saturation 98% on room air. GENERAL: Young female lying in bed, awake, alert, not in acute distress, and anxious. HEENT: Normocephalic and atraumatic. Pupils reactive to light equally. Moist oral mucosa. No oral thrush or exudate. No facial droop. NECK: Supple. No lymphadenopathy. CARDIOVASCULAR: Regular rate and rhythm. No murmur or gallop. LUNGS: Clear bilaterally. No wheezing or rhonchi. Normal breathing efforts. ABDOMEN: Soft, nontender, not distended. Normal bowel sounds. No hepatosplenomegaly or ascites. EXTREMITIES: No edema or cyanosis. SKIN: No rash. No hives. NEUROLOGIC: Unremarkable in general except the nystagmus to the left. ASSESSMENT AND RECOMMENDATION: 1. Leukocytosis, rule out infectious etiology. We will send blood culture x2, chest x-ray to rule out pneumonia, and urinalysis to rule out UTI. Monitor clinically for now since she does not have any symptoms related to infection. 2. Vertigo with nystagmus, rule out cerebellum pathology. With history of AVM malformation, may need MRA of the brain and Neurology consultation with telemonitor to rule out also cardiac arrhythmia. 3. History of AVM in her sister. This could be risk factor for this patient and she may need further evaluation. Recommend Neurology evaluation. Thank you for the consult. ID will continue to follow. Reyes Pan M.D. DR: Juan JOB#: [id number] CC: MONTY
--- NOTE | 2019-10-17 19:45 | NUR ---
NURSE NOTES: Received report from MARIAA Kellogg. Pt in sitting at side of bed, awake, talkative, no c/o pain, however complaining of dizziness, bed is locked in lowest position, call light within reach. Will continue to monitor. Told patient to call for assistance if she feels dizzy and not to get out without assistance.
[2019-10-17 20:00] VITALS: BP 107/64
[2019-10-17] MEDS: Heparin 5000 units/ml inj SUBQ SCH (20:09)
--- NOTE | 2019-10-17 20:09 | Consultation ---
Consult Note Consult Note NEUROLOGY CONSULTATION HISTORY: Ms. Yaritza Cavazos is a 34-year-old, right-handed, lady, who was referred to me for evaluation and management of vertigo. She was functioning relatively well until a few days ago when her psychiatrist prescribed her Zoloft for depression. She had taken the Zoloft for a day or so when she started to have a sensation of unsteadiness on her feet. She continued to take the Zoloft for a few more days but the unsteadiness became worse and she then started to have a spinning sensation. The spinning sensation became so severe that she was having problems walking and moving around and in addition she had nausea and vomiting. As a result of that she was brought into the [facility] emergency room. She was given lorazepam and meclizine and the nausea and vomiting have now resolved but she still unsteady on her feet when she gets up and walks and in addition she has a sensation of motion from side to side. The most comfortable position is when she is laying motionlessly in the bed with her body slightly turned to the right side. She denies any recent viral syndrome, any fevers or chills, or other illnesses. At this point in time she denies any weakness on one side of the other, numbness on one side of the other, problems with speech, problems with language, problems with vision, problems with hearing, or any other neurological symptoms. PAST HISTORY: Nothing significant. FAMILY HISTORY: Her father had strokes. 1 sister had a brain tumor. Another sister had an arteriovenous malformation in the brain. Her mother has kidney disease, Sjogren's syndrome. PERSONAL HISTORY: Home: She lives at home with her and 2-1/2 year-old son. 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 Habits: She has an alcoholic drink once in a while. She denies the use of tobacco. She does consume cannabinoids daily but has not done so since the vertigo started. MEDICATIONS AT HOME: Zoloft 25 mg for a few days. PHYSICAL EXAMINATION: General: She is a well-developed well-nourished pleasant but anxious lady in mild distress due to ongoing vertigo. Vital signs: Pulse: 78/min Blood pressure: 116/76 mmHg Respirations: 18/min Temperature: 98.2 F Head: Normocephalic and atraumatic. Neck: No neck rigidity was observed: EENT examination: Benign. NEUROLOGICAL EXAMINATION: MENTAL STATUS EXAMINATION: The patient was alert and awake. The patient was oriented to person, place, and time. The patient was able to recall 3/3 words immediately after 1 minute and after 3 minutes. The patient was able to remember Presidents Trump through [employer]. The patient's mathematical skills were good. The patient's visuospatial function was preserved. SPEECH: No dysarthria was noted. LANGUAGE: No aphasia was noted. CRANIAL NERVE EXAMINATION: II: The visual simon were intact on confrontation testing. III, IV, and : Extraocular movements were full. Pupils were 3 mm in diameter equal, round, regular, and reactive to light. V: Facial sensations were normal, and the temporales, masseters, and pterygoids functioned normally. VII: Facial expressions were normal and no facial asymmetry was noted. VIII: Hearing was normal bilaterally. She had mild nystagmus in the primary position. The nystagmus became more marked when she was made to look to the left side. She did not complain of oscillopsia. IX: The palate moved symmetrically on phonation. X: No hoarseness of voice was observed. XI: The sternocleidomastoids and trapezii functioned normally. XII: The tongue was in the midline without any fasciculations or atrophy. MOTOR SYSTEM: The tone was normal in all four extremities. Examination of muscle mass revealed no focal wasting. Examination of power revealed G 5/5 power in all muscle groups. SENSORY EXAMINATION: Sensations to pin prick, light touch, position and graphesthesia were normal. REFLEXES: 2+ and bilaterally symmetrical at the biceps, triceps, and brachioradialis, 1++ at the knees and ankles. The plantar responses were flexor bilaterally. COORDINATION: [id number]-rg-[id number] and [id number]-[id number]-[id number] testing were performed well. On Romberg test he swayed but did not fall to one side of the other. STANCE: She had a minimally wide-based but stable stance. GAIT: She walks with a minimally wide-based but stable gait which was significantly more steady with contact-guard. DIAGNOSTIC IMPRESSION: 1. Ms. Yaritza Cavazos is a 34-year-old, right-handed, lady, who was functioning relatively well until about a week ago when she had first felt a little dizzy and then over the next few days developed a sensation of unsteadiness on her feet and then circular vertigo. When the symptoms were at the maximum she also had nausea and vomiting. 2. She is more comfortable today but still has a constant sensation of moving from side to side and is quite uncomfortable due to that. 3. The neurological examination, at this time, reveals mild nystagmus in the primary position. The nystagmus becomes more marked when she is made to look to the left side. The rest of the neurological examination is benign. 4. An MRI scan of the brain without and with gadolinium performed on 10/16/2019 is normal. 5. Laboratory data obtained thus far have revealed a leukocytosis with a WBC count of 12,400, normal chemistry panel, and a urine analysis with 2+ leukocyte esterase 20-30 white blood cells and 0-2 red blood cells per high- power field. 6. The patient's history and neurological examination are most consistent with vertigo related to labyrinthine dysfunction. The most likely etiology would be a viral or postviral labyrinthitis or vestibular neuronitis. RECOMMENDATIONS: 1. The patient was given an explanation of the above- mentioned findings. 2. She will be started on Valium 2 mg at bedtime for the next few nights to help with the vertigo. 3. Treatment of urinary tract infection as per Dr. Pan. 4. Work-up for other treatable causes of vertigo with vitamin B12 level, folate level, vitamin D level, ESR, RPR, hemoglobin A1c, TSH. 5. The patient was encouraged to increase activity as tolerated. Thank you for entrusting me with the care of Ms. Cavazos. I shall follow her with you. Sincerely, Riccardo Sevilla M.D., M.S.P.H. Neurologist & Clinical Neurophysiologist. Riccardo Sevilla MD Oct 17, 2019 20:09
--- NOTE | 2019-10-17 20:15 | NUR ---
NURSE NOTES: I spoke with patient and she said Dr Corrigan had just seen her. He gave orders to see neuro outpatient in one week and an order for valium x 7-10 days. Pt was under the impression that she would be going home tonight. She was not aware that she is here under observation following transfer to telemetry. She was informed that the primary Dr Galvin will need to give an active discharge order to d/c the patient but she is still here to be monitored- she is still having vertigo. She said the neurologist Dr Sevilla told her she had a diagnosis of labyrinthritis and that could explain the vertigo and high WBC count from inner ear.
[2019-10-17 23:16] VITALS: BP 114/77
--- NOTE | 2019-10-18 07:49 | NUR ---
HAND-OFF: Report given to MARIAA Sher.
[2019-10-18 08:00] VITALS: BP 100/59
[2019-10-18] MEDS: Heparin 5000 units/ml inj SUBQ SCH ×2 (09:00→21:00)
--- NOTE | 2019-10-18 09:47 | NUR ---
CASE MANAGEMENT: REVIEW 10/18/19 SI: VERTIGO . DIZZINESS 97.0 55 17 147/77 100% ON RA WBC 12.4 CL- 110 CA+ 8.2 IS:HEPARIN SQ BID VALIUM PO QHS IV ZOFRAN Q6HR/PRN \: TRANSFER TO [facility] D/T BRADYCARDIA PLAN: RPR-PENDING URINE CX -PENDING BLOOD CX - PENDING VENOUS DUPLEX -NEGATIVE CHEST X-RAY - NO ACUTE FINDINGS
--- NOTE | 2019-10-18 10:07 | General Progress Note ---
Assessment/Plan Assessment/Plan: S: I am feeling better O: denies any cp or sob. PHYSICAL EXAMINATION:HEAD AND NEK: Atraumatic and normocephalic. CHEST: Clear to auscultation.HEART: S1, S2. Regular rate and rhythm. ABDOMEN: Soft. No organomegaly.MUSCULOSKELETAL: No gross focal motor deficit. NEUROLOGIC: The patient is awake and alert. Positive for vertigo. No nystagmus. No abnormal gross cranial nerve deficit is appreciated. LABORATORY AND DIAGNOSTIC DATA: Laboratories dated October 18 reviewed ASSESSMENT AND PLAN: 1. Acute on chronic life-interrupting severe benign positional vertigo. 2. Psychiatric disorder. 3. GI and DVT prophylaxis. 4. UTI Plan: New finding of UTI send U/C Note from Cardio and Psych reviewed Start IV abx Subjective Allergies: Coded Allergies: SULFAMETHOXAZOLE (Verified Allergy, Unknown, 10/14/19) TRIMETHOPRIM (Verified Allergy, Unknown, 10/14/19) Objective Last 24 Hour Vital Signs Date Time Temp Pulse Resp B/P (MAP) Pulse Ox O2 Delivery O2 Flow Rate FiO2 10/18/19 09:00 Room Air 10/18/19 08:00 98.1 60 16 100/59 (73) 98 10/18/19 04:00 52 10/18/19 00:02 60 10/17/19 23:16 97.0 55 17 114/77 (89) 100 10/17/19 20:53 Room Air 10/17/19 20:00 98.2 60 18 107/64 (78) 98 10/17/19 20:00 78 10/17/19 16:39 63 10/17/19 16:00 98.2 78 18 116/76 (89) 99 10/17/19 12:00 98.4 55 18 127/77 (94) 98 Intake and Output 10/17/19 10/18/19 19:00 07:00 Intake Total 600 ml 300 ml Output Total 3 ml 2 ml Balance 597 ml 298 ml Intake Oral 600 ml 300 ml Output Urine Total 3 ml 2 ml Laboratory Tests 10/17/19 14:45: Urine Color Pale yellow, Urine Appearance Slightly cloudy, Urine pH 6.5, Urine Specific [place] 1.005, Urine Protein Negative, Urine Glucose (UA) Negative, Urine Ketones Negative, Urine Blood Negative, Urine Nitrite Negative, Urine Bilirubin Negative, Urine Urobilinogen Normal, Urine Leukocyte Esterase 2+H, Urine RBC 0-2, Urine WBC 20-30H, Urine Squamous Epithelial Cells ModerateH, Urine Bacteria ModerateH 10/17/19 16:35: Erythrocyte Sedimentation Rate 17, Hemoglobin A1c 5.7, Vitamin B12 Level 655, Vitamin D 25-Hydroxy [Pending], 25-Hydroxy Vitamin D2 [Pending], 25-Hydroxy Vitamin D3 [Pending], Folate 11.9, Rapid Plasma Reagin [Pending] 10/18/19 06:38: Thyroid Stimulating Hormone (TSH) 2.155, Free Thyroxine 0.92 Height (Feet): 5 Height (Inches): 7.00 Weight (Pounds): 170 Vega Galvin MD Oct 18, 2019 10:07
[2019-10-18] MEDS ORDERED: cefTRIAXone 2 GM in D5W 55 ML IVPB SCH (11:00)
--- NOTE | 2019-10-18 11:10 | NUR ---
*-* NO INSURANCE INFORMATION IN THE BAR UNABLE TO SEND CLINICALS *--*
--- NOTE | 2019-10-18 11:14 | Cardiac Electrophysiology PN ---
Assessment/Plan Assessment/Plan ASSESSMENT AND PLAN: 1. Vertigo, etiology is not clear at this time. She is already on meclizine. Echocardiogram Nl EF 60%. Carotid duplex and MRI were negative. Dr Sevilla following 2. Sinus Sergio Her EKG shows sinus bradycardia of only 51. [place] HR while awake 47 today. 3. History of depression. Subjective Subjective Alert in NAD. No CP or SOB. Lowest HR 47 while sleeping Objective Last 24 Hour Vital Signs Date Time Temp Pulse Resp B/P (MAP) Pulse Ox O2 Delivery O2 Flow Rate FiO2 10/18/19 09:00 Room Air 10/18/19 08:00 98.1 60 16 100/59 (73) 98 10/18/19 08:00 58 10/18/19 04:00 52 10/18/19 00:02 60 10/17/19 23:16 97.0 55 17 114/77 (89) 100 10/17/19 20:53 Room Air 10/17/19 20:00 98.2 60 18 107/64 (78) 98 10/17/19 20:00 78 10/17/19 16:39 63 10/17/19 16:00 98.2 78 18 116/76 (89) 99 10/17/19 12:00 98.4 55 18 127/77 (94) 98 Intake and Output 10/17/19 10/18/19 19:00 07:00 Intake Total 600 ml 300 ml Output Total 3 ml 2 ml Balance 597 ml 298 ml Intake Oral 600 ml 300 ml Output Urine Total 3 ml 2 ml Laboratory Tests Test 10/17/19 14:45 10/17/19 16:35 10/18/19 06:38 Urine Color Pale yellow Urine Appearance Slightly cloudy Urine pH 6.5 (4.5-8.0) Urine Specific [place] 1.005 (1.005-1.035) Urine Protein Negative (NEGATIVE) Urine Glucose (UA) Negative (NEGATIVE) Urine Ketones Negative (NEGATIVE) Urine Blood Negative (NEGATIVE) Urine Nitrite Negative (NEGATIVE) Urine Bilirubin Negative (NEGATIVE) Urine Urobilinogen Normal MG/DL (0.0-1.0) Urine Leukocyte Esterase 2+ (NEGATIVE) H Urine RBC 0-2 /HPF (0 - 2) Urine WBC 20-30 /HPF (0 - 2) H Urine Squamous Epithelial Cells Moderate /LPF (NONE/OCC) H Urine Bacteria Moderate /HPF (NONE) H Erythrocyte Sedimentation Rate 17 MM/HR (0-20) Hemoglobin A1c 5.7 % (4.3-6.0) Vitamin B12 Level 655 PG/ML (193-986) Vitamin D 25-Hydroxy Pending 25-Hydroxy Vitamin D2 Pending 25-Hydroxy Vitamin D3 Pending Folate 11.9 NG/ML (8.6-58.9) Rapid Plasma Reagin Pending Thyroid Stimulating Hormone (TSH) 2.155 uiU/mL (0.358-3.740) Free Thyroxine 0.92 NG/DL (0.76-1.46) Microbiology Date/Time Source Procedure Growth Status 10/17/19 14:45 Urine,Clean Catch Urine Culture - Preliminary NO GROWTH Resulted Objective HEAD AND NECK: No JVD. LUNGS: Clear. CARDIOVASCULAR: Regular S1 and S2 with no gallop or murmur. ABDOMEN: Soft. EXTREMITIES: No pitting edema. Roque Stephens MD Oct 18, 2019 11:14
[2019-10-18 12:00] VITALS: BP 105/62
--- NOTE | 2019-10-18 14:02 | Infectious Diseases Prog Note ---
Assessment/Plan Problems: (1) Leukocytosis Assessment & Plan: rule out infectious etiology, blood culture x 2 is pending , CXR no infiltrates , UA showed pyuria , but not symptomatic with negative culture . monitor clinically (2) Vertigo Assessment & Plan: with nystagmus , most likely labyrinthitis as per neurology . has FH of AVM in her sister , neurology is following (3) Sterile pyuria Assessment & Plan: with NO symptoms and negative urine culture , no need for antibiotics treatment Subjective Constitutional: Reports: no symptoms HEENT: Reports: no symptoms Respiratory: Reports: no symptoms Breasts: Reports: no symptoms Cardiovascular: Reports: no symptoms Gastrointestinal/Abdominal: Reports: no symptoms Genitourinary: Reports: no symptoms Neurologic: Reports: other - dizziness Psychiatric: Reports: no symptoms Skin: Reports: no symptoms Endocrine: Reports: no symptoms Hematologic: Reports: no symptoms Musculoskeletal: Reports: no symptoms Allergies: Coded Allergies: SULFAMETHOXAZOLE (Verified Allergy, Unknown, 10/14/19) TRIMETHOPRIM (Verified Allergy, Unknown, 10/14/19) Objective Vital Signs Last 24 Hour Vital Signs Date Time Temp Pulse Resp B/P (MAP) Pulse Ox O2 Delivery O2 Flow Rate FiO2 10/18/19 12:00 99.7 55 16 105/62 (76) 99 10/18/19 12:00 47 10/18/19 09:00 Room Air 10/18/19 08:00 98.1 60 16 100/59 (73) 98 10/18/19 08:00 58 10/18/19 04:00 52 10/18/19 00:02 60 10/17/19 23:16 97.0 55 17 114/77 (89) 100 10/17/19 20:53 Room Air 10/17/19 20:00 98.2 60 18 107/64 (78) 98 10/17/19 20:00 78 10/17/19 16:39 63 10/17/19 16:00 98.2 78 18 116/76 (89) 99 Height (Feet): 5 Height (Inches): 7.00 Weight (Pounds): 170 General Appearance: WD/WN, no acute distress HEENT: normocephalic, atraumatic, anicteric, mucous membranes moist, PERRL Respiratory/Chest: chest wall non-tender, lungs clear, normal breath sounds, no respiratory distress, no accessory muscle use Cardiovascular: normal peripheral pulses, normal rate, regular rhythm, no gallop/murmur, no JVD Abdomen: normal bowel sounds, soft, non tender, no organomegaly, non distended , no mass, no scars Genitourinary: normal external genitalia Extremities: no cyanosis, no clubbing Skin: no rash, no lesions, no ulcers Neurologic/Psychiatric: alert, oriented x 3, responsive Lymphatic: no neck adenopathy, no groin adenopathy Musculoskeletal: normal muscle bulk, no effusion Microbiology Date/Time Source Procedure Growth Status 10/17/19 14:45 Urine,Clean Catch Urine Culture - Preliminary NO GROWTH Resulted Laboratory Tests Test 10/17/19 14:45 10/17/19 16:35 10/18/19 06:38 Urine Color Pale yellow Urine Appearance Slightly cloudy Urine pH 6.5 (4.5-8.0) Urine Specific [place] 1.005 (1.005-1.035) Urine Protein Negative (NEGATIVE) Urine Glucose (UA) Negative (NEGATIVE) Urine Ketones Negative (NEGATIVE) Urine Blood Negative (NEGATIVE) Urine Nitrite Negative (NEGATIVE) Urine Bilirubin Negative (NEGATIVE) Urine Urobilinogen Normal MG/DL (0.0-1.0) Urine Leukocyte Esterase 2+ (NEGATIVE) H Urine RBC 0-2 /HPF (0 - 2) Urine WBC 20-30 /HPF (0 - 2) H Urine Squamous Epithelial Cells Moderate /LPF (NONE/OCC) H Urine Bacteria Moderate /HPF (NONE) H Erythrocyte Sedimentation Rate 17 MM/HR (0-20) Hemoglobin A1c 5.7 % (4.3-6.0) Vitamin B12 Level 655 PG/ML (193-986) Vitamin D 25-Hydroxy Pending 25-Hydroxy Vitamin D2 Pending 25-Hydroxy Vitamin D3 Pending Folate 11.9 NG/ML (8.6-58.9) Rapid Plasma Reagin Pending Thyroid Stimulating Hormone (TSH) 2.155 uiU/mL (0.358-3.740) Free Thyroxine 0.92 NG/DL (0.76-1.46) Current Medications Medications (Trade) Dose Ordered Sig/Brandon Route PRN Reason Start Time Stop Time Status Last Admin Dose Admin Acetaminophen (Tylenol) 650 mg Q4H PRN ORAL Mild Pain (Pain Scale 1-3) 10/17/19 14:45 11/15/19 22:44 Ceftriaxone Sodium 2 gm/ Dextrose 55 ml @ 110 mls/hr DAILY IVPB 10/18/19 11:00 10/25/19 10:59 10/18/19 11:10 Dextrose (Dextrose 50%) 25 ml Q30M PRN IV Hypoglycemia 10/17/19 14:45 11/15/19 22:44 Dextrose (Dextrose 50%) 50 ml Q30M PRN IV Hypoglycemia 10/17/19 14:45 11/15/19 22:44 Diazepam (Valium) 2 mg QHS ORAL 10/17/19 22:00 10/24/19 21:59 10/17/19 22:55 Gadobutrol (Gadavist) 7.5 mmol NOW PRN IV Radiology Procedure 10/17/19 19:30 10/20/19 19:28 Heparin Sodium (Porcine) (Heparin 5000 units/ml) 5,000 units EVERY 12 HOURS SUBQ 10/17/19 21:00 11/16/19 08:59 Ondansetron HCl (Zofran) 4 mg Q6H PRN IVP Nausea & Vomiting 10/17/19 14:45 11/15/19 14:44 10/18/19 09:27 Prochlorperazine (Compazine) 10 mg Q6H PRN IVP Nausea & Vomiting 10/17/19 14:45 11/15/19 14:44 Reyes Pan M.D. Oct 18, 2019 14:02
[2019-10-18 16:00] VITALS: BP 99/64
--- NOTE | 2019-10-18 17:07 | Neurology Progress Note ---
Interim History Interim History Interim History Ms. Yaritza Cavazos is a 34-year-old, right-handed, lady, who was functioning relatively well until about a week prior to admission when she had first felt a little dizzy and then over the next few days developed a sensation of unsteadiness on her feet and then circular vertigo. When the symptoms were at the maximum she also had nausea and vomiting. She slept well last night but on awakening this morning she continued to have lightheadedness more than vertigo. She however has noticed that her vision is clearer today. In addition when she walks she is steadier on her feet. She denies any new neurological symptoms. Review of Systems Neuro Review of Systems Benign. Objective Physical Exam Last Vital Signs Date Time Temp Pulse Resp B/P (MAP) Pulse Ox O2 Delivery O2 Flow Rate FiO2 10/18/19 16:00 98.1 58 18 99/64 (76) 99 10/18/19 09:00 Room Air Laboratory Tests Test 10/18/19 06:38 Thyroid Stimulating Hormone (TSH) 2.155 uiU/mL (0.358-3.740) Free Thyroxine 0.92 NG/DL (0.76-1.46) Neurologic Exam Objective PHYSICAL EXAMINATION: General: She is a well-developed well-nourished pleasant but anxious lady in no acute distress. Head: Normocephalic and atraumatic. Neck: No neck rigidity was observed: EENT examination: Benign. NEUROLOGICAL EXAMINATION: MENTAL STATUS EXAMINATION: The patient was alert and awake. The patient was oriented to person, place, and time. The patient was able to recall 3/3 words immediately after 1 minute and after 3 minutes. The patient was able to remember Presidents Trump through [employer]. The patient's mathematical skills were good. The patient's visuospatial function was preserved. SPEECH: No dysarthria was noted. LANGUAGE: No aphasia was noted. CRANIAL NERVE EXAMINATION: II: The visual simon were intact on confrontation testing. III, IV, and : Extraocular movements were full. Pupils were 3 mm in diameter equal, round, regular, and reactive to light. V: Facial sensations were normal, and the temporales, masseters, and pterygoids functioned normally. VII: Facial expressions were normal and no facial asymmetry was noted. VIII: Hearing was normal bilaterally. She had no nystagmus. IX: The palate moved symmetrically on phonation. X: No hoarseness of voice was observed. XI: The sternocleidomastoids and trapezii functioned normally. XII: The tongue was in the midline without any fasciculations or atrophy. MOTOR SYSTEM: The tone was normal in all four extremities. Examination of muscle mass revealed no focal wasting. Examination of power revealed G 5/5 power in all muscle groups. SENSORY EXAMINATION: Sensations to pin prick, light touch, position and graphesthesia were normal. REFLEXES: 2+ and bilaterally symmetrical at the biceps, triceps, and brachioradialis, 1++ at the knees and ankles. The plantar responses were flexor bilaterally. COORDINATION: [id number] and ufzf-[id number] testing were performed well. On Romberg test he swayed but did not fall to one side of the other. STANCE: She had a minimally wide-based but stable stance. GAIT: She walked with a minimally wide-based but stable gait which was significantly more steady independently. Impression/Recommendations Diagnostic Impression DIAGNOSTIC IMPRESSION: 1. Ms. Yaritza Cavazos is a 34-year-old, right-handed, lady, who was functioning relatively well until about a week ago when she had first felt a little dizzy and then over the next few days developed a sensation of unsteadiness on her feet and then circular vertigo. When the symptoms were at the maximum she also had nausea and vomiting. 2. She slept well last night but on awakening this morning she continued to have lightheadedness more than vertigo. She however has noticed that her vision is clearer today. In addition when she walks she is steadier on her feet. She denies any new neurological symptoms. 3. The neurological examination, at this time, reveals complete resolution of her nystagmus. The rest of the neurological examination is also benign. 4. An MRI scan of the brain without and with gadolinium performed on 10/16/2019 is normal. 5. Laboratory data obtained thus far have revealed a leukocytosis with a WBC count of 12,400, normal chemistry panel, and a urine analysis with 2+ leukocyte esterase 20-30 white blood cells and 0-2 red blood cells per high- power field. 6. The patient's history and neurological examination are most consistent with vertigo related to labyrinthine dysfunction. The most likely etiology would be a viral or postviral labyrinthitis or vestibular neuronitis. Today she has more a feeling of lightheadedness than true vertigo. In addition the nystagmus has resolved. Recommendations RECOMMENDATIONS: 1. The patient was given an explanation of the above- mentioned findings. 2. She will be continued on Valium 2 mg but will be given a dose every 8 hours [id number]. 3. Treatment of urinary tract infection as per Dr. Pan. 4. The patient was encouraged to increase activity as tolerated. Riccardo Sevilla M.D., M.S.P.H. Neurologist & Clinical Neurophysiologist. Riccardo Sevilla MD Oct 18, 2019 17:07
--- NOTE | 2019-10-18 19:34 | NUR ---
HAND-OFF: Report given to MARIAA Victoria.
--- NOTE | 2019-10-18 19:36 | NUR ---
NURSE NOTES: Received report from MARIAA Sher. Pt in sitting at side of bed, awake, talkative, no c/o pain, however complaining of dizziness, bed is locked in lowest position, call light within reach. Will continue to monitor. Told patient to call for assistance if she feels dizzy and not to get out of bed without assistance. pt acknowledged and verbalized understanding
--- NOTE | 2019-10-18 19:45 | Consultation ---
DATE OF CONSULTATION: 10/18/2019 CONSULTING PHYSICIAN: Jai Barber M.D. HISTORY OF PRESENT ILLNESS: The patient is a 34-year-old female with a history of depression and anxiety, has been on Zoloft in the past, who has been admitted to the hospital due to vertigo and nausea. The patient stated that she started . The patient is presenting with anxiety and depression. She is going through multiple psychosocial stressors for the past several weeks. The patient is being in the middle of divorce. The patient is having depressed mood, anhedonia, worthlessness, and hopelessness, in addition to nausea and vertigo. The patient took Valium 2 mg last night, had difficulty sleeping. PAST PSYCHIATRIC HISTORY: No suicide attempt. No psychiatric hospitalization. Depression and anxiety. PAST MEDICAL HISTORY: Nonsignificant. ALLERGIES: No known drug allergies. SUBSTANCE ABUSE HISTORY: No known history of illicit drug use or alcohol. MENTAL STATUS EXAMINATION: The patient is alert and oriented times to self, place, situation, and person. Mood is anxious. She was tearful. Mood is depressed. Affect is constricted, congruent with mood. Thought process, linear and goal oriented. Thought content, no suicidal or homicidal ideation. Cognition is intact. Insight and judgment good. ASSESSMENT: AXIS I: Major depressive disorder. Anxiety disorder. AXIS II: Deferred. AXIS III: Vertigo. AXIS IV: Moderate. AXIS V: 50. PLAN: 1. We will increase the Valium to 5. 2. The patient is reluctant to be on any new psychotropic medication. Jai Barber M.D. DR: LAMIN JOB#: [id number] CC: MONTY
[2019-10-18 20:00] VITALS: BP 118/72
--- NOTE | 2019-10-18 23:13 | Pulmonology Progress Note ---
Assessment/Plan Assessment/Plan Pulmonary Progress Note HPI Patient is a 34 year old woman admitted with intractable vertigo, denies headache, fevers, chills, tinnitus, visual changes/loss of vision, neck pain/ stiffness. No recent cough or abdominal pain/tenderness. Pt. denies . test negative. Pt. was evaluated in the ED on 10/14/2019, treated with Meclizine, Ativan, and Zofran. Symptoms worse if she sits up. Pmhx of Depression. She denies recent head trauma or recent URI. Slight improvement on Valium Social History: social drinking. 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 IVF Will need ENT/Neurology Consults CT head no contrast- negative for ICH, EDEMA, or mass Labs noted Troponins, CK-MB, CK- all negative Subjective ROS Limited/Unobtainable: No Allergies: Coded Allergies: SULFAMETHOXAZOLE (Verified Allergy, Unknown, 10/14/19) TRIMETHOPRIM (Verified Allergy, Unknown, 10/14/19) Objective Last 24 Hour Vital Signs Date Time Temp Pulse Resp B/P (MAP) Pulse Ox O2 Delivery O2 Flow Rate FiO2 10/18/19 16:00 71 10/18/19 16:00 98.1 58 18 99/64 (76) 99 10/18/19 12:00 99.7 55 16 105/62 (76) 99 10/18/19 12:00 47 10/18/19 09:00 Room Air 10/18/19 08:00 98.1 60 16 100/59 (73) 98 10/18/19 08:00 58 10/18/19 04:00 52 10/18/19 00:02 60 10/17/19 23:16 97.0 55 17 114/77 (89) 100 Intake and Output 10/17/19 10/18/19 19:00 07:00 Intake Total 600 ml 300 ml Output Total 3 ml 2 ml Balance 597 ml 298 ml Intake Oral 600 ml 300 ml Output Urine Total 3 ml 2 ml Microbiology Date/Time Source Procedure Growth Status 10/17/19 14:45 Urine,Clean Catch Urine Culture - Preliminary NO GROWTH Resulted Laboratory Tests 10/18/19 06:38: Thyroid Stimulating Hormone (TSH) 2.155, Free Thyroxine 0.92 Current Medications Medications (Trade) Dose Ordered Sig/Branodn Route PRN Reason Start Time Stop Time Status Last Admin Dose Admin Acetaminophen (Tylenol) 650 mg Q4H PRN ORAL Mild Pain (Pain Scale 1-3) 10/17/19 14:45 11/15/19 22:44 Dextrose (Dextrose 50%) 25 ml Q30M PRN IV Hypoglycemia 10/17/19 14:45 11/15/19 22:44 Dextrose (Dextrose 50%) 50 ml Q30M PRN IV Hypoglycemia 10/17/19 14:45 11/15/19 22:44 Diazepam (Valium) 2 mg Q8HR ORAL 10/18/19 18:00 10/25/19 17:59 10/18/19 17:22 Gadobutrol (Gadavist) 7.5 mmol NOW PRN IV Radiology Procedure 10/17/19 19:30 10/20/19 19:28 Heparin Sodium (Porcine) (Heparin 5000 units/ml) 5,000 units EVERY 12 HOURS SUBQ 10/17/19 21:00 11/16/19 08:59 Ondansetron HCl (Zofran) 4 mg Q6H PRN IVP Nausea & Vomiting 10/17/19 14:45 11/15/19 14:44 10/18/19 21:27 Prochlorperazine (Compazine) 10 mg Q6H PRN IVP Nausea & Vomiting 10/17/19 14:45 11/15/19 14:44 Dorian Rawls MD Oct 18, 2019 23:13
[2019-10-19] VITALS: BP 103/57
[2019-10-19 04:00] VITALS: BP 92/48
--- NOTE | 2019-10-19 07:31 | NUR ---
HAND-OFF: Report given to MARIAA Murphy.
--- NOTE | 2019-10-19 07:45 | NUR ---
NURSE NOTES: Nurse report given by MARIAA Cannon. Patient's awake and sitting high kumar position in bed, complains of nausea, aggregate conveyor operator nurse Kassandra stated she will give Ondansetron to patient, otherwise denies pain, denies chest pain, no s/s of distress or SOB. Bed low and locked, call light within reach, side rails x 3, bed alarm is armed, reminded patient to call nurse when needed to get out of bed. cardiac monitor technician is applied. IV is saline locked, flushed well, patent and asymptomatic. Will continue to monitor.
[2019-10-19 08:00] VITALS: BP 107/68
[2019-10-19] MEDS: Heparin 5000 units/ml inj SUBQ SCH (09:00)
--- NOTE | 2019-10-19 10:12 | Cardiac Electrophysiology PN ---
Assessment/Plan Assessment/Plan 1. Vertigo, etiology is not clear at this time. She is already on meclizine. Echocardiogram Nl EF 60%. Carotid duplex and MRI were negative. Dr Sevilla following 2. Sinus Sergio Her EKG shows sinus bradycardia of only 51. Lowest HR while awake 46. Could be athletic heart as she is very physically active 3. History of depression. ALCIDES RN Subjective Subjective Alert in NAD. Still feels dizzy. Says cant tolerate Valium and prefers Ativan. No CP or SOB. Lowest HR 46 while awake Objective Last 24 Hour Vital Signs Date Time Temp Pulse Resp B/P (MAP) Pulse Ox O2 Delivery O2 Flow Rate FiO2 10/19/19 09:00 Room Air 10/19/19 08:00 97.5 63 19 107/68 (81) 95 10/19/19 04:00 97.7 49 20 92/48 (63) 97 10/19/19 04:00 47 10/19/19 00:00 56 10/19/19 00:00 97.7 56 20 103/57 (72) 98 10/19/19 00:00 56 10/18/19 21:00 Room Air 10/18/19 20:00 59 10/18/19 20:00 59 10/18/19 20:00 98.2 55 20 118/72 (87) 99 10/18/19 16:00 71 10/18/19 16:00 98.1 58 18 99/64 (76) 99 10/18/19 12:00 99.7 55 16 105/62 (76) 99 10/18/19 12:00 47 Intake and Output 10/18/19 10/19/19 19:00 07:00 Intake Total 750 ml Output Total 0 ml Balance 750 ml 0 ml Intake Oral 750 ml Output Urine Total 0 ml # Voids 5 Microbiology Date/Time Source Procedure Growth Status 10/17/19 16:25 Blood Blood Culture - Preliminary NO GROWTH AFTER 24 HOURS Resulted 10/17/19 16:20 Blood Blood Culture - Preliminary NO GROWTH AFTER 24 HOURS Resulted 10/17/19 14:45 Urine,Clean Catch Urine Culture - Preliminary Mixed Gram Positive Organism Resulted Objective HEAD AND NECK: No JVD. LUNGS: Clear. CARDIOVASCULAR: Regular S1 and S2 with no gallop or murmur. ABDOMEN: Soft. EXTREMITIES: No pitting edema. Roque Stephens MD Oct 19, 2019 10:12
[2019-10-19 12:00] VITALS: BP 112/71
--- NOTE | 2019-10-19 13:33 | NUR ---
NURSE NOTES: Patient's transferred to [facility] per Dr. Galvin. Patient's in stable condition,AO x4, no s/s of distress or SOB. front desk monitor removed. Bedside report given to MARIAA Potter. Patient's belonging list went over with receiving nurse and patient at bedside and signed by both nurses at bedside. Transferred orders carried out.
--- NOTE | 2019-10-19 13:38 | Infectious Diseases Prog Note ---
Assessment/Plan Problems: (1) Leukocytosis Assessment & Plan: with no evidence of infectious etiology, blood culture x 2 is negative , CXR no infiltrates , UA showed pyuria , but not symptomatic with culture grew contaminants . monitor clinically (2) Vertigo Assessment & Plan: with nystagmus , most likely labyrinthitis as per neurology . has FH of AVM in her sister , neurology is following (3) Sterile pyuria Assessment & Plan: with NO symptoms and urine culture grew contaminants , no need for antibiotics treatment Subjective Constitutional: Reports: no symptoms HEENT: Reports: no symptoms Respiratory: Reports: no symptoms Breasts: Reports: no symptoms Cardiovascular: Reports: no symptoms Gastrointestinal/Abdominal: Reports: no symptoms Genitourinary: Reports: no symptoms Neurologic: Reports: other - dizzeness Psychiatric: Reports: no symptoms Skin: Reports: no symptoms Endocrine: Reports: no symptoms Hematologic: Reports: no symptoms Musculoskeletal: Reports: no symptoms Allergies: Coded Allergies: SULFAMETHOXAZOLE (Verified Allergy, Unknown, 10/14/19) TRIMETHOPRIM (Verified Allergy, Unknown, 10/14/19) Subjective feels better with less dizziness Objective Vital Signs Last 24 Hour Vital Signs Date Time Temp Pulse Resp B/P (MAP) Pulse Ox O2 Delivery O2 Flow Rate FiO2 10/19/19 12:00 98.1 55 18 112/71 (85) 97 10/19/19 09:00 Room Air 10/19/19 08:00 97.5 63 19 107/68 (81) 95 10/19/19 08:00 49 10/19/19 04:00 97.7 49 20 92/48 (63) 97 10/19/19 04:00 47 10/19/19 00:00 56 10/19/19 00:00 97.7 56 20 103/57 (72) 98 10/19/19 00:00 56 10/18/19 21:00 Room Air 10/18/19 20:00 59 10/18/19 20:00 59 10/18/19 20:00 98.2 55 20 118/72 (87) 99 10/18/19 16:00 71 10/18/19 16:00 98.1 58 18 99/64 (76) 99 Height (Feet): 5 Height (Inches): 7.00 Weight (Pounds): 177 General Appearance: WD/WN, no acute distress HEENT: normocephalic, atraumatic, anicteric, mucous membranes moist, PERRL Respiratory/Chest: chest wall non-tender, lungs clear, normal breath sounds, no respiratory distress, no accessory muscle use Cardiovascular: normal peripheral pulses, normal rate, regular rhythm, no gallop/murmur, no JVD Abdomen: normal bowel sounds, soft, non tender, no organomegaly, non distended , no mass, no scars Genitourinary: normal external genitalia Extremities: no cyanosis, no clubbing Skin: no rash, no lesions, no ulcers Neurologic/Psychiatric: financial administrator II-XII grossly normal, alert, oriented x 3, responsive Lymphatic: no neck adenopathy, no groin adenopathy Musculoskeletal: normal muscle bulk, no effusion Microbiology Date/Time Source Procedure Growth Status 10/17/19 16:25 Blood Blood Culture - Preliminary NO GROWTH AFTER 24 HOURS Resulted 10/17/19 16:20 Blood Blood Culture - Preliminary NO GROWTH AFTER 24 HOURS Resulted 10/17/19 14:45 Urine,Clean Catch Urine Culture - Preliminary Mixed Gram Positive Organism Resulted Current Medications Medications (Trade) Dose Ordered Sig/Brandon Route PRN Reason Start Time Stop Time Status Last Admin Dose Admin Acetaminophen (Tylenol) 650 mg Q4H PRN ORAL Mild Pain (Pain Scale 1-3) 10/19/19 14:45 11/15/19 22:44 UNV Dextrose (Dextrose 50%) 25 ml Q30M PRN IV Hypoglycemia 10/19/19 13:45 11/15/19 22:44 UNV Dextrose (Dextrose 50%) 50 ml Q30M PRN IV Hypoglycemia 10/19/19 13:45 11/15/19 22:44 UNV Diazepam (Valium) 2 mg Q8HR ORAL 10/19/19 14:00 10/25/19 17:59 UNV Gadobutrol (Gadavist) 7.5 mmol NOW PRN IV Radiology Procedure 10/19/19 19:30 10/20/19 19:28 UNV Heparin Sodium (Porcine) (Heparin 5000 units/ml) 5,000 units EVERY 12 HOURS SUBQ 10/19/19 21:00 11/16/19 08:59 UNV Ondansetron HCl (Zofran) 4 mg Q6H PRN IVP Nausea & Vomiting 10/19/19 14:45 11/15/19 14:44 UNV Prochlorperazine (Compazine) 10 mg Q6H PRN IVP Nausea & Vomiting 10/19/19 14:45 11/15/19 14:44 MICHELLEV Reyes Pan M.D. Oct 19, 2019 13:38
--- NOTE | 2019-10-19 13:50 | NUR ---
NURSE NOTES: Received report from Luz RN, pt a/a/o x4 seating in bed with no signs of distress or other issues at this time. pt is able to ambulate around the unit with steady gait. IV on the right AC gauge#20 heplock. call light within reach, bed in lowest position, side rales upx2. I will f/u as needed. I will f/u as needed.
[2019-10-19] MEDS ORDERED: ZOFRAN 4 MG4 MG/2 ML IVP (15:30)
[2019-10-19] MEDS ORDERED: DIAZEPAM2 MG ORAL (15:30)
[2019-10-19 16:00] VITALS: BP 117/74
--- NOTE | 2019-10-19 18:24 | Pulmonology Progress Note ---
Assessment/Plan Assessment/Plan Pulmonary Progress Note HPI Patient is a 34 year old woman admitted with intractable vertigo, denies headache, fevers, chills, tinnitus, visual changes/loss of vision, neck pain/ stiffness. No recent cough or abdominal pain/tenderness. Pt. denies . test negative. Pt. was evaluated in the ED on 10/14/2019, treated with Meclizine, Ativan, and Zofran. Symptoms worse if she sits up. Pmhx of Depression. She denies recent head trauma or recent URI. Slight improvement on Ativan Social History: social drinking. 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 IVF Will need ENT/Neurology Consults CT head no contrast- negative for ICH, EDEMA, or mass Labs noted Troponins, CK-MB, CK- all negative Subjective ROS Limited/Unobtainable: No Allergies: Coded Allergies: SULFAMETHOXAZOLE (Verified Allergy, Unknown, 10/14/19) TRIMETHOPRIM (Verified Allergy, Unknown, 10/14/19) Objective Last 24 Hour Vital Signs Date Time Temp Pulse Resp B/P (MAP) Pulse Ox O2 Delivery O2 Flow Rate FiO2 10/19/19 16:00 98.1 55 18 117/74 (88) 97 10/19/19 12:00 98.1 55 18 112/71 (85) 97 10/19/19 09:00 Room Air 10/19/19 08:00 97.5 63 19 107/68 (81) 95 10/19/19 08:00 49 10/19/19 04:00 97.7 49 20 92/48 (63) 97 10/19/19 04:00 47 10/19/19 00:00 56 10/19/19 00:00 97.7 56 20 103/57 (72) 98 10/19/19 00:00 56 10/18/19 21:00 Room Air 10/18/19 20:00 59 10/18/19 20:00 59 10/18/19 20:00 98.2 55 20 118/72 (87) 99 Intake and Output 10/18/19 10/19/19 19:00 07:00 Intake Total 750 ml Output Total 0 ml Balance 750 ml 0 ml Intake Oral 750 ml Output Urine Total 0 ml # Voids 5 Microbiology Date/Time Source Procedure Growth Status 10/17/19 16:25 Blood Blood Culture - Preliminary NO GROWTH AFTER 24 HOURS Resulted 10/17/19 16:20 Blood Blood Culture - Preliminary NO GROWTH AFTER 24 HOURS Resulted 10/17/19 14:45 Urine,Clean Catch Urine Culture - Preliminary Mixed Gram Positive Organism Resulted Current Medications Medications (Trade) Dose Ordered Sig/Brandon Route PRN Reason Start Time Stop Time Status Last Admin Dose Admin Acetaminophen (Tylenol) 650 mg Q4H PRN ORAL Mild Pain (Pain Scale 1-3) 10/19/19 13:36 11/18/19 13:35 Dextrose (Dextrose 50%) 25 ml Q30M PRN IV Hypoglycemia 10/19/19 13:45 11/15/19 22:44 Dextrose (Dextrose 50%) 50 ml Q30M PRN IV Hypoglycemia 10/19/19 13:45 11/15/19 22:44 Diazepam (Valium) 2 mg Q8HR ORAL 10/19/19 14:00 10/25/19 17:59 Gadobutrol (Gadavist) 7.5 mmol NOW PRN IV Radiology Procedure 10/19/19 19:30 10/20/19 19:28 Heparin Sodium (Porcine) (Heparin 5000 units/ml) 5,000 units EVERY 12 HOURS SUBQ 10/19/19 21:00 11/16/19 08:59 Ondansetron HCl (Zofran) 4 mg Q6H PRN IVP Nausea & Vomiting 10/19/19 13:37 11/18/19 13:36 10/19/19 14:01 Prochlorperazine (Compazine) 10 mg Q6H PRN IVP Nausea & Vomiting 10/19/19 13:37 11/18/19 13:36 Dorian Rawls MD Oct 19, 2019 18:24
--- NOTE | 2019-10-19 18:30 | Neurology Progress Note ---
Interim History Interim History Interim History Ms. Yaritza Cavazos is a 34-year-old, right-handed, lady, who was functioning relatively well until about a week prior to admission when she had first felt a little dizzy and then over the next few days developed a sensation of unsteadiness on her feet and then circular vertigo. When the symptoms were at the maximum she also had nausea and vomiting. She slept relatively well last night. On awakening this morning she continued to have lightheadedness more than vertigo, except when she changes her position. The vision continues to be clearer today. When she walks she is steadier on her feet. She still needs Zofran for her nausea. She denies any new neurological symptoms. Plans are to go home today. Review of Systems Neuro Review of Systems Benign. Objective Physical Exam Last Vital Signs Date Time Temp Pulse Resp B/P (MAP) Pulse Ox O2 Delivery O2 Flow Rate FiO2 10/19/19 16:00 98.1 55 18 117/74 (88) 97 10/19/19 09:00 Room Air Neurologic Exam Objective PHYSICAL EXAMINATION: General: She is a well-developed well-nourished pleasant but anxious lady in no acute distress. Head: Normocephalic and atraumatic. Neck: No neck rigidity was observed: EENT examination: Benign. NEUROLOGICAL EXAMINATION: MENTAL STATUS EXAMINATION: The patient was alert and awake. The patient was oriented to person, place, and time. The patient was able to recall 3/3 words immediately after 1 minute and after 3 minutes. The patient was able to remember Presidents Trump through Downing [employer]. The patient's mathematical skills were good. The patient's visuospatial function was preserved. SPEECH: No dysarthria was noted. LANGUAGE: No aphasia was noted. CRANIAL NERVE EXAMINATION: II: The visual simon were intact on confrontation testing. III, IV, and : Extraocular movements were full. Pupils were 3 mm in diameter equal, round, regular, and reactive to light. V: Facial sensations were normal, and the temporales, masseters, and pterygoids functioned normally. VII: Facial expressions were normal and no facial asymmetry was noted. VIII: Hearing was normal bilaterally. She had no nystagmus. IX: The palate moved symmetrically on phonation. X: No hoarseness of voice was observed. XI: The sternocleidomastoids and trapezii functioned normally. XII: The tongue was in the midline without any fasciculations or atrophy. MOTOR SYSTEM: The tone was normal in all four extremities. Examination of muscle mass revealed no focal wasting. Examination of power revealed G 5/5 power in all muscle groups. SENSORY EXAMINATION: Sensations to pin prick, light touch, position and graphesthesia were normal. REFLEXES: 2+ and bilaterally symmetrical at the biceps, triceps, and brachioradialis, 1++ at the knees and ankles. The plantar responses were flexor bilaterally. COORDINATION: [id number] and [id number] testing were performed well. On Romberg test he swayed but did not fall to one side of the other. STANCE: She had a minimally wide-based but stable stance. GAIT: She walked with a minimally wide-based but stable gait which was significantly more steady independently. Impression/Recommendations Diagnostic Impression DIAGNOSTIC IMPRESSION: 1. Ms. Yaritza Cavazos is a 34-year-old, right-handed, lady, who was functioning relatively well until about a week ago when she had first felt a little dizzy and then over the next few days developed a sensation of unsteadiness on her feet and then circular vertigo. When the symptoms were at the maximum she also had nausea and vomiting. 2. She slept relatively well last night. On awakening this morning she continued to have lightheadedness more than vertigo, except when she changes her position. The vision continues to be clearer today. When she walks she is steadier on her feet. She still needs Zofran for her nausea. She denies any new neurological symptoms. Plans are to go home today. 3. The neurological examination, at this time, reveals complete resolution of her nystagmus. The rest of the neurological examination is also benign. 4. An MRI scan of the brain without and with gadolinium performed on 10/16/2019 is normal. 5. Laboratory data obtained thus far have revealed a leukocytosis with a WBC count of 12,400, normal chemistry panel, and a urine analysis with 2+ leukocyte esterase 20-30 white blood cells and 0-2 red blood cells per high- power field. 6. The patient's history and neurological examination are most consistent with vertigo related to labyrinthine dysfunction. The most likely etiology would be a viral or postviral labyrinthitis or vestibular neuronitis. The nystagmus has resolved and she is significantly steadier on her feet. Recommendations RECOMMENDATIONS: 1. The patient was given an explanation of the above- mentioned findings. 2. She will be continued on Valium 2 mg every 8 hours as needed. 3. She was encouraged to increase activity as tolerated. 4. I would like to see her in follow-up in approximately 6 to 8 weeks in my office. Riccardo Sevilla M.D., M.S.P.H. Neurologist & Clinical Neurophysiologist. Riccardo Sevilla MD Oct 19, 2019 18:30
[2019-10-19] MEDS ORDERED: Gadavist 7.5mMol/7.5ml vial IV PRN (19:30)
--- NOTE | 2019-10-19 20:14 | NUR ---
NURSE NOTES: Received discharge order, discharge instructions and belonging given to patient. also prescription for zofran and Ativan given to patient. patient stated that she will go to her regular pharmacy to fill out prescription. IV removed prior to d/c. pt left the floor with no signs of distress or other issues at this time. I will f/u as needed.
[2019-10-19] MEDS ORDERED: Heparin 5000 units/ml inj SUBQ SCH (21:00)
--- NOTE | 2019-10-20 02:15 | Progress Note ---
DATE: 10/19/2019 SUBJECTIVE: The patient chest pain. She slept well. Continues to have lightheadedness and vertigo; however, is much less than previous encounter. Continues to have anxiety. She is tearful. She has thought about her divorce, reluctant to be on any psychotropic medication. MENTAL STATUS EXAMINATION: The patient is alert and oriented times self, place, and situation. Mood is anxious. Affect is constricted, congruent with mood. Thought processes, linear and goal oriented. Thought content, no suicidal or homicidal ideation. ASSESSMENT: 1. Anxiety disorder. 2. Depression. PLAN: Continue to reassess and encouraged her to take SSRIs and continue her on low dose of Valium . Jai Barber M.D. DR: Markell JOB#: [id number] CC:
--- NOTE | 2019-10-20 11:49 | Discharge Summary ---
Discharge Summary Discharge Summary _ DATE OF ADMISSION: 10/16/2019 DATE OF DISCHARGE: 10/19/2019 DISCHARGED BY: Dr. Galvin REASON FOR ADMISSION: 34 years old female with no significant past medical history, presented to emergency department, complaining of intractable vertigo. She denied headaches, fever ,chills ,rhinitis, visual changes or loss of vision. She denied neck pain/stiffness, cough or abnormal pain/tenderness. Patient denied . Patient was evaluated on 10/14/2019 and received meclizine , Ativan and Zofran. Patient endorsed not having any relief of vertigo with the medications. She denied alcohol and illicit streeet drug use. Upon evaluation patient had mild leukocytosis WBC 12.1, stable hemoglobin, hematocrit and platelet count. Stable electrolytes and renal parameters , glucose 93. AST 46 ,ALT 69 . EKG reveals sinus bradycardia with heart rate of 51, no acute ischemic changes no block. Patient subsequently admitted for further management. CONSULTANTS: round corner cutter operator Dr. Julien neurologist Dr. Sevilla pulmonary Dr. Rawls ID specialist Dr. Pan psychiatrist [facility] COURSE: Patient admitted to medical surgical floor . Patient received IV hydration. Patient initially was kept n.p.o. Symptomatic treatment provided. DVT and GI prophylaxis provided. Supplemental oxygen was on board as needed to keep pulse oximetry above 92%, which was stabl;e on room air. Patient started on meclizine as needed. Per round corner cutter operator , etiology of vertigo was not clear. Echocardiogram revealed preserved ejection fraction of 60%. MRI performed on 10/16/2019 revealed no evidence of acute intracranial pathology. Per neurologist, patient's history and neurological examination were most consistent with vertigo related to labyrinthine dysfunction with the most likely etiology viral or postviral labyrinthitis or vestibular neuronitis. Fall precaution maintained. Nystagmus resolved , and patient was significantly steadier on her feet. Antiemetic provided as needed. Patient received explanation of her condition . She was on Valium 2 mg every 8 hours as needed she was encouraged to increase activity as tolerated. Patient to follow-up with neurologist in 6 to 8 weeks in the office. Hemoglobin A1c 5.7. Urine test was negative. Urinalysis revealed pyuria and moderate bacteria. Psychiatrist followed. Patient was reluctant to start any psychotropic medications. Supportive treatment provided. Infectious specialist followed for mild leukocytosis. Blood culture were negative. Chest x-ray revealed no infiltrate. Urinalysis revealed pyuria . Patient had no urinary symptoms. Culture grew contaminant. No need for antibiotics as per ID specialist, monitor clinically. RPR was nonreactive. Patient clinically stabilized and was ready for discharge home. 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 DISCHARGE INSTRUCTIONS: Patient was discharged home. Follow-up with a primary care provider in 1 week. Follow-up with neurologist in 6 to 8 weeks as advised by neurologist. I have been assigned to dictate discharge summary for this account. I was not involved in the patient's management. Genoveva Read NP Oct 20, 2019 11:49
== END 2019-10-19 20:15 | disposition home or self-care (01) | DRG 149 ==
LOC: EMR 18:38 → 3E 20:25 → OBSVTOIN 20:25 → EDBEDREQ 21:29 → EDBEDREQSVC 23:22 → EDBEDREQ 23:31 → 2E 10-17 14:34 → 3E 10-19 13:36
DX: H83.2X9 Labyrinthine dysfunction, unspecified ear (principal); N39.0 Urinary tract infection, site not specified; Z88.1 Allergy status to other antibiotic agents; Z88.2 Allergy status to sulfonamides; F41.9 Anxiety disorder, unspecified; F32.9 Major depressive disorder, single episode, unspecified; I49.8 Other specified cardiac arrhythmias
CPT/HCPCS: 36415; 70553; 71045; 80048; 80053; 81003; 81025; 82306; 82607; 82746; 83036; 84439; 84443; 85025; 85651; 86592; 87040; 87086; 93005; 93306; 93880; 96361; 96374; 99284; A9585; J2405; J7030